=== PATIENT | male | born 1960 | race Caucasian/White ===

== ENCOUNTER 2019-06-20 22:12 | Inpatient (IN) | payer OTHER ==
[~2019-06-20] VITALS: Ht 177.8 cm; Wt 93.9 kg
[2019-06-20 22:45] LABS: BASOPHILS # (AUTO) 0.1 X10'3 (0-0.2); BASOPHILS % (AUTO) 4.3 % (0-1); EOSINOPHILS % (AUTO) 0.8 % (0-6); LYMPHOCYTES # (AUTO) 0.4 X10'3 (1.1-4.8); LYMPHOCYTES % (AUTO) 17.4 % (21-51); MEAN CORPUSCULAR HEMOGLOBIN 32.6 PG (27.0-31.0); MEAN CORPUSCULAR HGB CONC 36.8 g/dL (33.0-36.5); MEAN CORPUSCULAR VOLUME 88.6 FL (78-98); MEAN PLATELET VOLUME 7.6 FL (7.4-10.4); MONOCYTES # (AUTO) 0.7 X10'3 (0-0.9); MONOCYTES % (AUTO) 31.2 % (2-12); NEUTROPHILS % (AUTO) 46.3 % (42-75); RED BLOOD COUNT 1.64 X10'6 (4.70-6.10); RED CELL DISTRIBUTION WIDTH 15.1 % (11.5-14.5); WHITE BLOOD COUNT 2.1 X10'3 (4.5-11.0)
[2019-06-20 22:50] LABS: HEMATOCRIT 14.5 % (42.0-52.0); HEMOGLOBIN 5.3 g/dl (14.0-17.9); PLATELET COUNT 40 X10'3 (140-440)
--- NOTE | 2019-06-20 22:52 | NUR ---
DR CHOW AND FABIÁN RN AWARE OF CRITICAL VALUE HGB5.3, HCT 14.5, PLATELET 40
[2019-06-20 22:55] LABS: PARTIAL THROMBOPLASTIN TIME 22 SECONDS (22-32)
[2019-06-20 22:57] LABS: ALANINE AMINOTRANSFERASE 45 U/L (12-78); ALBUMIN 3.4 G/DL (3.4-5.0); ALBUMIN/GLOBULIN RATIO 0.9 (1.1-1.5); ALKALINE PHOSPHATASE 115 IU/L (46-116); ANION GAP 16 (8-16); ASPARTATE AMINO TRANSFERASE 25 U/L (10-37); BILIRUBIN,TOTAL 0.7 MG/DL (0.1-1.0); BLOOD UREA NITROGEN 37 MG/DL (7-18); BUN/CREATININE RATIO 5.6 (5.4-32.0); CALCIUM 8.8 MG/DL (8.5-10.1); CHLORIDE 101 MMOL/L (99-107); CREATININE 6.59 MG/DL (0.60-1.10); GLUCOSE 131 MG/DL (70-104); SODIUM 144 MMOL/L (135-145); TOTAL CARBON DIOXIDE 27.1 MMOL/L (24-32); TOTAL PROTEIN 7.4 G/DL (6.4-8.2); eGFR 9 ML/MIN
[2019-06-20 22:59] LABS: POTASSIUM 3.9 MMOL/L (3.5-5.1)
[2019-06-20 23:06] LABS: HYPOCHROMASIA 1+; PLATELET ESTIMATE DECREASED
[2019-06-20 23:07] LABS: SPHEROCYTES FEW
--- NOTE | 2019-06-20 23:33 | NUR ---
Notified by Stanley that due to the presence of "devoloping antibodies" and the need for CMV negative and irradiated blood products the availability is limited and delivery will be delayed. MD duran.
[2019-06-20] MEDS ORDERED: ondansetron/PF 4mg/2ml inj IV PRN (23:45)
[2019-06-21 02:00] VITALS: BP 118/70
[2019-06-21 03:14] LABS: BASOPHILS # (AUTO) 0.1 X10'3 (0-0.2); EOSINOPHILS % (AUTO) 0.6 % (0-6); LYMPHOCYTES # (AUTO) 0.5 X10'3 (1.1-4.8); MEAN CORPUSCULAR HEMOGLOBIN 33.3 PG (27.0-31.0); MEAN PLATELET VOLUME 7.8 FL (7.4-10.4); MONOCYTES # (AUTO) 0.7 X10'3 (0-0.9); RED BLOOD COUNT 1.57 X10'6 (4.70-6.10); WHITE BLOOD COUNT 2.3 X10'3 (4.5-11.0)
[2019-06-21 03:15] LABS: BASOPHILS % (AUTO) 4.1 % (0-1); LYMPHOCYTES % (AUTO) 20.8 % (21-51); MEAN CORPUSCULAR HGB CONC 37.4 g/dL (33.0-36.5); MEAN CORPUSCULAR VOLUME 88.9 FL (78-98); NEUTROPHILS % (AUTO) 42.5 % (42-75); RED CELL DISTRIBUTION WIDTH 15.2 % (11.5-14.5)
[2019-06-21 03:22] LABS: HEMATOCRIT 13.9 % (42.0-52.0); HEMOGLOBIN 5.2 g/dl (14.0-17.9); PLATELET COUNT 44 X10'3 (140-440)
[2019-06-21 03:32] LABS: BANDS% (MANUAL) 2 % (0-10); LYMPHOCYTES % (MANUAL) 25 % (21-51); MONOCYTES % (MANUAL) 20 % (2-12); NEUTROPHILS % (MANUAL) 46 % (42-75); TOTAL CELLS COUNTED 100
[2019-06-21 03:33] LABS: IMMATURE CELLS 3 % (0-0); METAMYLEOCYTES% (MANUAL) 3 % (0-0); NUCLEATED RED BLOOD CELLS 1 /100WBC (0-0); PROMYELOCYTES % (MANUAL) 1 % (0-0)
[2019-06-21 03:39] LABS: ALANINE AMINOTRANSFERASE 45 U/L (12-78); ALBUMIN 3.3 G/DL (3.4-5.0); ALBUMIN/GLOBULIN RATIO 0.9 (1.1-1.5); ALKALINE PHOSPHATASE 108 IU/L (46-116); ANION GAP 12 (8-16); ASPARTATE AMINO TRANSFERASE 28 U/L (10-37); BILIRUBIN,TOTAL 0.7 MG/DL (0.1-1.0); BLOOD UREA NITROGEN 43 MG/DL (7-18); CALCIUM 8.8 MG/DL (8.5-10.1); CHLORIDE 103 MMOL/L (99-107); CREATININE 7.14 MG/DL (0.60-1.10); GLUCOSE 119 MG/DL (70-104); PHOSPHORUS 5.4 MG/DL (2.3-4.5); SODIUM 142 MMOL/L (135-145); TOTAL CARBON DIOXIDE 27.1 MMOL/L (24-32); TOTAL PROTEIN 7.1 G/DL (6.4-8.2); eGFR 8 ML/MIN
[2019-06-21 03:42] LABS: POTASSIUM 4.1 MMOL/L (3.5-5.1)
[2019-06-21 04:15] LABS: BANDS% (MANUAL) 2 % (0-10); BASOPHILS % (MANUAL) 4 % (0-1); EOSINOPHILS % (MANUAL) 2 % (0-6); LYMPHOCYTES % (MANUAL) 25 % (21-51); METAMYLEOCYTES% (MANUAL) 3 % (0-0); MONOCYTES % (MANUAL) 28 % (2-12); NEUTROPHILS % (MANUAL) 36 % (42-75); PLATELET ESTIMATE DECREASED; TOTAL CELLS COUNTED 100
[2019-06-21 04:16] LABS: ROULEAUX 1+
[2019-06-21 06:00] VITALS: BP 116/68
--- NOTE | 2019-06-21 06:15 | NUR ---
Patient in room PCU 3023. I have received report from MAXIMILIANO Oneil and had the opportunity to ask questions and assume patient care.
--- NOTE | 2019-06-21 07:00 | NUR ---
Noted this patient has a Fistula dialysis access to the Left forearm. I assessed this and I could feel the thrill and I auscultated the bruit.
--- NOTE | 2019-06-21 10:44 | NUR ---
Order for STAT EKG for patient in room 9683Z. c/o chest pain. HENRYU, Wesley Sorenson
[2019-06-21 11:00] VITALS: BP 128/74
--- NOTE | 2019-06-21 11:14 | NUR ---
Patient complaining of chest pain to the left chest. Ordered EKG as per protocol. No ST changes noted. Contacted Dr. Rodriguez the Fur Storage Clerk regarding patient symptoms and EKG and asked for any further orders. Dr. Rodriguez has no new orders. I will continue to monitor patient for duration of this shift.
--- NOTE | 2019-06-21 12:03 | NUR ---
Malnutrition consult, patient met at bedside, assisted in filling out menu. Patient reports he has recently lost weight intentionally and is at 198 lbs, states comfortable at current weight. Endorses great appetite. Understands renal diet. no edema, or severe muscle weakness, appears well nourished. Reported no GI issues. No malnutrition. Addendum: 06/21/19 at [address] Amended: Links added.
--- NOTE | 2019-06-21 13:34 | NUR ---
Per Dr. Rodriguez, do NOT hang any blood on this patient until he is having his dialysis. I will pass this information on to oncoming shift and let charge nurse know what Dr. Rodriguez's orders are with regards to administering blood products.
[2019-06-21] MEDS ORDERED: LISI10TA4 PO (14:12)
[2019-06-21] MEDS ORDERED: FOLI0.8T7 PO (14:12)
[2019-06-21] MEDS ORDERED: ACYC-202 PO (14:12)
[2019-06-21] MEDS ORDERED: ONDA8TAB13 PO (14:12)
[2019-06-21] MEDS ORDERED: AMLO10TA PO (14:12)
[2019-06-21 15:00] VITALS: BP 117/73
[2019-06-21 18:00] VITALS: BP 125/79
--- NOTE | 2019-06-21 18:15 | NUR ---
Problems reprioritized. Patient report given, questions answered & plan of care reviewed with MAXIMILIANO Alatorre.
[2019-06-21] MEDS ORDERED: non-formulary drug (Ondansetron (Ondansetron Odt) 1 TAB) PO SCH (20:00)
[2019-06-21 23:00] VITALS: BP 136/83
[2019-06-22] VITALS (14 sets, daily range): BP systolic 111–146; BP diastolic 70–92
[2019-06-22 05:23] LABS: ALANINE AMINOTRANSFERASE 36 U/L (12-78); ALBUMIN 3.1 G/DL (3.4-5.0); ALBUMIN/GLOBULIN RATIO 0.8 (1.1-1.5); ALKALINE PHOSPHATASE 92 IU/L (46-116); ANION GAP 15 (8-16); ASPARTATE AMINO TRANSFERASE 20 U/L (10-37); BILIRUBIN,TOTAL 0.8 MG/DL (0.1-1.0); BLOOD UREA NITROGEN 68 MG/DL (7-18); BUN/CREATININE RATIO 6.9 (5.4-32.0); CALCIUM 7.9 MG/DL (8.5-10.1); CHLORIDE 99 MMOL/L (99-107); CREATININE 9.84 MG/DL (0.60-1.10); GLUCOSE 88 MG/DL (70-104); MAGNESIUM 1.9 MG/DL (1.5-2.4); PHOSPHORUS 5.8 MG/DL (2.3-4.5); POTASSIUM 5.1 MMOL/L (3.5-5.1); SODIUM 138 MMOL/L (135-145); TOTAL CARBON DIOXIDE 24.2 MMOL/L (24-32); TOTAL PROTEIN 6.8 G/DL (6.4-8.2); eGFR 6 ML/MIN
--- NOTE | 2019-06-22 06:30 | NUR ---
Patient in room PCU 3023. I have received report from MAXIMILIANO Alatorre and had the opportunity to ask questions and assume patient care. Patient currently resting in bed, bed locked and low, call light in reach, no acute distress, will continue to monitor.
--- NOTE | 2019-06-22 06:38 | NUR ---
Problems reprioritized. Patient report given, questions answered & plan of care reviewed with Destiny VIERA.
[2019-06-22 06:56] LABS: BASOPHILS % (AUTO) 0.8 % (0-1); EOSINOPHILS % (AUTO) 0.7 % (0-6); LYMPHOCYTES # (AUTO) 0.6 X10'3 (1.1-4.8); LYMPHOCYTES % (AUTO) 24.7 % (21-51); MEAN CORPUSCULAR HEMOGLOBIN 31.8 PG (27.0-31.0); MEAN CORPUSCULAR HGB CONC 36.3 g/dL (33.0-36.5); MEAN CORPUSCULAR VOLUME 87.5 FL (78-98); MEAN PLATELET VOLUME 7.3 FL (7.4-10.4); MONOCYTES # (AUTO) 0.6 X10'3 (0-0.9); MONOCYTES % (AUTO) 27.4 % (2-12); NEUTROPHILS # (AUTO) 1.1 X10'3 (1.8-7.7); NEUTROPHILS % (AUTO) 46.4 % (42-75); RED BLOOD COUNT 1.33 X10'6 (4.70-6.10); RED CELL DISTRIBUTION WIDTH 14.7 % (11.5-14.5); WHITE BLOOD COUNT 2.3 X10'3 (4.5-11.0)
[2019-06-22 07:00] LABS: HEMATOCRIT 11.7 % (42.0-52.0); HEMOGLOBIN 4.2 g/dl (14.0-17.9)
[2019-06-22 07:01] LABS: PLATELET COUNT 39 X10'3 (140-440)
[2019-06-22] MEDS ORDERED: heparin 1,000 units/ml 10ml inj HE ONE ×2 (08:00)
[2019-06-22] MEDS ORDERED: epoetin 20,000 units/ml inj IV ONE (08:00)
[2019-06-22] MEDS ORDERED: heparin 1,000unit/ml 10ml vial 10 ML IV ONE (08:00)
[2019-06-22] MEDS ORDERED: normal saline 1000ml 250 ML IV PRN (08:00)
[2019-06-22] MEDS: folic acid/vitamin B complex w/vitamin C 0.8mg tablet PO SCH (08:10)
[2019-06-22 09:14] LABS: NUCLEATED RED BLOOD CELLS 1 /100WBC (0-0); PLATELET ESTIMATE DECREASED; ROULEAUX 1+; TOTAL CELLS COUNTED 100
--- NOTE | 2019-06-22 13:00 | NUR ---
Per Idalia Howard NP, no H&H drawn post transfusion or in between units. Will check in the morning with AM labs.
[2019-06-22] MEDS: lisinopril 10 MG tablet PO SCH (14:23)
[2019-06-22] MEDS: amLODIPine 5mg tablet PO SCH (14:23)
[2019-06-22] MEDS ORDERED: acyclovir 200 MG capsule PO SCH (15:09)
--- NOTE | 2019-06-22 18:05 | NUR ---
Problems reprioritized. Patient report given, questions answered & plan of care reviewed with MAXIMILIANO Alatorre. Patient stable at shift change
--- NOTE | 2019-06-22 18:14 | NUR ---
Patient in room PCU 3023. I have received report from Martine Kingsley and had the opportunity to ask questions and assume patient care.
[2019-06-23 02:00] VITALS: BP 122/78
[2019-06-23 06:00] VITALS: BP 118/68
--- NOTE | 2019-06-23 06:26 | NUR ---
Problems reprioritized. Patient report given, questions answered & plan of care reviewed with Damaris Richardson.
[2019-06-23 06:45] LABS: BASOPHILS # (AUTO) 0.1 X10'3 (0-0.2); BASOPHILS % (AUTO) 5.4 % (0-1); EOSINOPHILS % (AUTO) 0.8 % (0-6); LYMPHOCYTES # (AUTO) 0.5 X10'3 (1.1-4.8); LYMPHOCYTES % (AUTO) 18.1 % (21-51); MEAN PLATELET VOLUME 7.6 FL (7.4-10.4); MONOCYTES # (AUTO) 0.8 X10'3 (0-0.9); NEUTROPHILS # (AUTO) 1.1 X10'3 (1.8-7.7); NEUTROPHILS % (AUTO) 44.7 % (42-75); RED BLOOD COUNT 1.87 X10'6 (4.70-6.10); WHITE BLOOD COUNT 2.5 X10'3 (4.5-11.0)
--- NOTE | 2019-06-23 07:02 | NUR ---
Patient in room PCU 3023C. I have received report from Celi VIERA and had the opportunity to ask questions and assume patient care.
[2019-06-23 07:09] LABS: ALANINE AMINOTRANSFERASE 34 U/L (12-78); ALBUMIN 3.3 G/DL (3.4-5.0); ALBUMIN/GLOBULIN RATIO 0.9 (1.1-1.5); ALKALINE PHOSPHATASE 94 IU/L (46-116); ANION GAP 10 (8-16); ASPARTATE AMINO TRANSFERASE 24 U/L (10-37); BILIRUBIN,TOTAL 0.8 MG/DL (0.1-1.0); BLOOD UREA NITROGEN 41 MG/DL (7-18); BUN/CREATININE RATIO 5.9 (5.4-32.0); CALCIUM 8.5 MG/DL (8.5-10.1); CHLORIDE 102 MMOL/L (99-107); CREATININE 6.97 MG/DL (0.60-1.10); GLUCOSE 91 MG/DL (70-104); PHOSPHORUS 5.3 MG/DL (2.3-4.5); POTASSIUM 4.9 MMOL/L (3.5-5.1); SODIUM 140 MMOL/L (135-145); TOTAL CARBON DIOXIDE 28.4 MMOL/L (24-32); TOTAL PROTEIN 7.1 G/DL (6.4-8.2); eGFR 8 ML/MIN
[2019-06-23 07:23] LABS: MEAN CORPUSCULAR HEMOGLOBIN 30.4 PG (27.0-31.0); MEAN CORPUSCULAR HGB CONC 35.3 g/dL (33.0-36.5); MEAN CORPUSCULAR VOLUME 86.1 FL (78-98)
[2019-06-23 07:26] LABS: HEMATOCRIT 15.7 % (42.0-52.0); HEMOGLOBIN 5.5 g/dl (14.0-17.9); PLATELET COUNT 56 X10'3 (140-440)
[2019-06-23 07:28] LABS: RED CELL DISTRIBUTION WIDTH 14.9 % (11.5-14.5)
--- NOTE | 2019-06-23 07:36 | NUR ---
Received critical Hgb and Hct of 5.5 abd 15.7. (up from 4.2 and 11.7 on 06/22). Platelets increased to 56 (from 39 on 06/22). Called CARLOS Bell to notify. No orders to transfuse at this time; she will speak to Dr Masterson and they will decide when to transfuse/dialyze patient. Patient asymptomatic at this time.
[2019-06-23 08:12] LABS: TOTAL CELLS COUNTED 100
[2019-06-23 08:13] LABS: PLATELET ESTIMATE DECREASED; ROULEAUX 1+
[2019-06-23] MEDS: folic acid/vitamin B complex w/vitamin C 0.8mg tablet PO SCH (08:58)
[2019-06-23] MEDS: lisinopril 10 MG tablet PO SCH (08:58)
[2019-06-23] MEDS: amLODIPine 5mg tablet PO SCH (08:58)
[2019-06-23 11:00] VITALS: BP 139/76
[2019-06-23 15:00] VITALS: BP 140/84
--- NOTE | 2019-06-23 15:30 | NUR ---
Patient in room PCU 3023. I have received report from MAXIMILIANO Ocampo and had the opportunity to ask questions and assume patient care.
--- NOTE | 2019-06-23 18:30 | NUR ---
Problems reprioritized. Patient report given, questions answered & plan of care reviewed with Percy RN.
--- NOTE | 2019-06-23 18:30 | NUR ---
Patient in room PCU 3023. I have received report from Lulú Hackett RN and had the opportunity to ask questions and assume patient care.
[2019-06-23 19:35] VITALS: BP 126/75
[2019-06-23 23:00] VITALS: BP 118/79
[2019-06-24 03:00] VITALS: BP 140/89
[2019-06-24 06:00] VITALS: BP 125/79
[2019-06-24 06:08] LABS: EOSINOPHILS % (AUTO) 0.9 % (0-6); LYMPHOCYTES # (AUTO) 0.5 X10'3 (1.1-4.8); MONOCYTES # (AUTO) 0.9 X10'3 (0-0.9); PLATELET COUNT 54 X10'3 (140-440); RED BLOOD COUNT 1.69 X10'6 (4.70-6.10)
[2019-06-24 06:10] LABS: BASOPHILS # (AUTO) 0.1 X10'3 (0-0.2); BASOPHILS % (AUTO) 3.9 % (0-1); LYMPHOCYTES % (AUTO) 17.4 % (21-51); MEAN CORPUSCULAR HEMOGLOBIN 31.6 PG (27.0-31.0); MEAN CORPUSCULAR HGB CONC 36.3 g/dL (33.0-36.5); MEAN CORPUSCULAR VOLUME 87.1 FL (78-98); MEAN PLATELET VOLUME 7.6 FL (7.4-10.4); MONOCYTES % (AUTO) 31.6 % (2-12); NEUTROPHILS # (AUTO) 1.4 X10'3 (1.8-7.7); NEUTROPHILS % (AUTO) 46.2 % (42-75); RED CELL DISTRIBUTION WIDTH 14.5 % (11.5-14.5)
[2019-06-24 06:11] LABS: ALANINE AMINOTRANSFERASE 34 U/L (12-78); ALBUMIN 3.3 G/DL (3.4-5.0); ALBUMIN/GLOBULIN RATIO 0.8 (1.1-1.5); ALKALINE PHOSPHATASE 95 IU/L (46-116); ANION GAP 12 (8-16); ASPARTATE AMINO TRANSFERASE 24 U/L (10-37); BILIRUBIN,TOTAL 0.6 MG/DL (0.1-1.0); BLOOD UREA NITROGEN 64 MG/DL (7-18); BUN/CREATININE RATIO 6.6 (5.4-32.0); CALCIUM 7.7 MG/DL (8.5-10.1); CHLORIDE 102 MMOL/L (99-107); CREATININE 9.68 MG/DL (0.60-1.10); GLUCOSE 97 MG/DL (70-104); MAGNESIUM 1.9 MG/DL (1.5-2.4); POTASSIUM 4.9 MMOL/L (3.5-5.1); SODIUM 140 MMOL/L (135-145); TOTAL CARBON DIOXIDE 26.1 MMOL/L (24-32); TOTAL PROTEIN 7.2 G/DL (6.4-8.2); eGFR 6 ML/MIN
[2019-06-24 06:14] LABS: HEMATOCRIT 14.7 % (42.0-52.0); HEMOGLOBIN 5.3 g/dl (14.0-17.9)
--- NOTE | 2019-06-24 06:23 | NUR ---
Patient in room PCU 3024H. I have received report from Percy RN and had the opportunity to ask questions and assume patient care.
--- NOTE | 2019-06-24 06:23 | NUR ---
Received critical Hgb and Hct 5.3 and 14.7. Platelets 54. Pt asymptomatic. Called Tom Wolff NP, and there is no change in orders.
--- NOTE | 2019-06-24 07:19 | NUR ---
Problems reprioritized. Patient report given, questions answered & plan of care reviewed with Damaris Olson RN. Addendum: 06/24/19 at 0721 by Winston Bey RN time should be 0630
[2019-06-24] MEDS: folic acid/vitamin B complex w/vitamin C 0.8mg tablet PO SCH (07:49)
[2019-06-24] MEDS: amLODIPine 5mg tablet PO SCH (07:49)
[2019-06-24] MEDS: acyclovir 200 MG capsule PO SCH (07:49)
[2019-06-24] MEDS: lisinopril 10 MG tablet PO SCH (07:50)
[2019-06-24 09:16] LABS: TOTAL CELLS COUNTED 100
[2019-06-24 09:17] LABS: PLATELET ESTIMATE DECREASED
[2019-06-24 11:00] VITALS: BP 116/76
[2019-06-24 14:08] LABS: OCCULT BLOOD STOOL NEGATIVE (Neg)
[2019-06-24 15:00] VITALS: BP 118/81
--- NOTE | 2019-06-24 15:50 | NUR ---
Problems reprioritized. Patient report given, questions answered & plan of care reviewed with Valeria VIERA and Lorna VIERA.
--- NOTE | 2019-06-24 18:30 | NUR ---
Patient in room PCU 3023. I have received report from Valeria VIERA and had the opportunity to ask questions and assume patient care.
--- NOTE | 2019-06-24 18:33 | NUR ---
Orientee documentation: I have reviewed and agree with interventions, assessments performed and documented by Lorna VIERA. Orientee Medication Administration: For this medication-pass time frame, medication were reviewed, dispensed, administered and documented per hospital policy by Lorna VIERA .
--- NOTE | 2019-06-24 18:44 | NUR ---
Problems reprioritized. Patient report given, questions answered & plan of care reviewed with Reshma VIERA. Patient stable at transfer of care.
[2019-06-24 19:00] VITALS: BP 139/88
--- NOTE | 2019-06-24 19:15 | NUR ---
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 Called report to Squeak Rattle And Leak Repairer Tom Wolff NP and relayed information regarding patients' critical antibody result for his ongoing plan of care.
[2019-06-24] MEDS: acetaminophen 325mg tablet PO PRN (21:11)
[2019-06-24 23:00] VITALS: BP 122/77
[2019-06-24] MEDS: HYDROcodone/acetaminophen 10/325mg tab PO PRN (23:43)
[2019-06-25] VITALS (8 sets, daily range): BP systolic 98–137; BP diastolic 58–83
[2019-06-25 05:10] LABS: LYMPHOCYTES # (AUTO) 0.7 X10'3 (1.1-4.8); PLATELET COUNT 56 X10'3 (140-440); RED BLOOD COUNT 1.61 X10'6 (4.70-6.10)
[2019-06-25 05:13] LABS: BASOPHILS % (AUTO) 0.6 % (0-1); EOSINOPHILS % (AUTO) 1.1 % (0-6); LYMPHOCYTES % (AUTO) 17.9 % (21-51); MEAN CORPUSCULAR HEMOGLOBIN 31.4 PG (27.0-31.0); MEAN CORPUSCULAR HGB CONC 36.2 g/dL (33.0-36.5); MEAN CORPUSCULAR VOLUME 86.7 FL (78-98); MEAN PLATELET VOLUME 7.5 FL (7.4-10.4); NEUTROPHILS # (AUTO) 2.1 X10'3 (1.8-7.7); NEUTROPHILS % (AUTO) 55.4 % (42-75); RED CELL DISTRIBUTION WIDTH 14.8 % (11.5-14.5); WHITE BLOOD COUNT 3.9 X10'3 (4.5-11.0)
[2019-06-25 05:18] LABS: HEMOGLOBIN 5.1 g/dl (14.0-17.9)
[2019-06-25 05:38] LABS: ALANINE AMINOTRANSFERASE 35 U/L (12-78); ALBUMIN 3.2 G/DL (3.4-5.0); ALBUMIN/GLOBULIN RATIO 0.8 (1.1-1.5); ALKALINE PHOSPHATASE 91 IU/L (46-116); ANION GAP 15 (8-16); ASPARTATE AMINO TRANSFERASE 27 U/L (10-37); BILIRUBIN,TOTAL 0.6 MG/DL (0.1-1.0); BLOOD UREA NITROGEN 79 MG/DL (7-18); BUN/CREATININE RATIO 6.5 (5.4-32.0); CALCIUM 7.9 MG/DL (8.5-10.1); CHLORIDE 99 MMOL/L (99-107); CREATININE 12.07 MG/DL (0.60-1.10); GLUCOSE 86 MG/DL (70-104); PHOSPHORUS 7.1 MG/DL (2.3-4.5); POTASSIUM 5.1 MMOL/L (3.5-5.1); SODIUM 138 MMOL/L (135-145); TOTAL CARBON DIOXIDE 24.3 MMOL/L (24-32); TOTAL PROTEIN 7.4 G/DL (6.4-8.2); eGFR 4 ML/MIN
[2019-06-25 06:26] LABS: TOTAL CELLS COUNTED 100
[2019-06-25 06:27] LABS: PLATELET ESTIMATE DECREASED
--- NOTE | 2019-06-25 06:45 | NUR ---
Problems reprioritized. Patient report given, questions answered & plan of care reviewed with AGUILA VIERA.
[2019-06-25] MEDS ORDERED: heparin 1,000 units/ml 10ml inj HE ONE ×2 (08:00)
[2019-06-25] MEDS ORDERED: normal saline 1000ml 250 ML IV PRN (08:00)
[2019-06-25] MEDS ORDERED: epoetin 20,000 units/ml inj IV ONE (08:00)
[2019-06-25] MEDS ORDERED: heparin 1,000unit/ml 10ml vial 10 ML IV ONE (08:00)
[2019-06-25] MEDS: acyclovir 200 MG capsule PO SCH (09:31)
[2019-06-25] MEDS: amLODIPine 5mg tablet PO SCH (09:32)
[2019-06-25] MEDS: folic acid/vitamin B complex w/vitamin C 0.8mg tablet PO SCH (09:32)
[2019-06-25] MEDS: lisinopril 10 MG tablet PO SCH (09:32)
--- NOTE | 2019-06-25 09:52 | NUR ---
Initial: Pt admit with chronic anemia with hx ESRD on HD. Pt currently on renal diet documented with 75-100% meeting nutrient needs with adequate protein intake to meet the demands of HD. Noted that phos has increased since admit, d/w MD recommendation for a phos binder with meals. LBM 06/24. No edema or wounds. No nutrition diagnosis at this time. Will continue to follow. Recommendations: 1) Continue renal diet 2) Phos binder with meals per MD approval 3) Wt per rx Addendum: 06/25/19 at [address] Amended: Links added.
--- NOTE | 2019-06-25 12:36 | NUR ---
I agree with will Dixon RN assessment.
[2019-06-25] MEDS: HYDROcodone/acetaminophen 10/325mg tab PO PRN (13:19)
[2019-06-25] MEDS: sevelamer carbonate 800mg tablet PO SCH ×2 (13:20→20:09)
[2019-06-25] MEDS: folic acid 1mg tablet PO SCH (13:20)
--- NOTE | 2019-06-25 18:11 | NUR ---
Orientee documentation: I have reviewed and agree with interventions, assessments performed and documented by Destiny VIERA. Orientee Medication Administration: For this medication-pass time frame, medication were reviewed, dispensed, administered and documented per hospital policy by Destiny VIERA.
--- NOTE | 2019-06-25 18:15 | NUR ---
Patient in room PCU 3023. I have received report from Destiny Tavarez RN and had the opportunity to ask questions and assume patient care. Bedside report completed. robotic technician present, no distress noted.
--- NOTE | 2019-06-25 18:29 | NUR ---
Problems reprioritized. Patient report given, questions answered & plan of care reviewed with Pete VIERA.
--- NOTE | 2019-06-25 19:30 | NUR ---
pt has chemo port access unknown, saline/ heparin lock unable to determine. no sign of infection. dressing clean, dry , intact. endorsed assessment to charge Radha VIERA / policy r/t compliance.
[2019-06-26] VITALS (27 sets, daily range): BP systolic 93–155; BP diastolic 53–86
--- NOTE | 2019-06-26 06:12 | NUR ---
Problems reprioritized. Patient report given to Yesica RN, questions answered & plan of care reviewed with . Bedside reported completed. pt a/o x4, bed alarm on.
[2019-06-26] MEDS: folic acid 1mg tablet PO SCH (08:24)
[2019-06-26] MEDS: acyclovir 200 MG capsule PO SCH (08:24)
[2019-06-26] MEDS: folic acid/vitamin B complex w/vitamin C 0.8mg tablet PO SCH (08:24)
[2019-06-26] MEDS: sevelamer carbonate 800mg tablet PO SCH ×3 (08:24→17:50)
[2019-06-26] MEDS ORDERED: calcium chloride inj. 2,000 MG in normal saline 250ml IV soln 250 ML IV ONE (09:00)
[2019-06-26] MEDS ORDERED: citrate dextrose 1000ml IV sol 1,000 ML HE ONE (09:00)
[2019-06-26] MEDS: lisinopril 10 MG tablet PO SCH (09:43)
[2019-06-26] MEDS: amLODIPine 5mg tablet PO SCH (09:43)
[2019-06-26 11:21] LABS: BASOPHILS # (AUTO) 0.1 X10'3 (0-0.2); EOSINOPHILS # (AUTO) 0.1 X10'3 (0-0.9); MEAN CORPUSCULAR VOLUME 87.2 FL (78-98); NEUTROPHILS # (AUTO) 2.2 X10'3 (1.8-7.7); PLATELET COUNT 62 X10'3 (140-440); WHITE BLOOD COUNT 4.4 X10'3 (4.5-11.0)
[2019-06-26 11:22] LABS: BASOPHILS % (AUTO) 1.4 % (0-1); EOSINOPHILS % (AUTO) 2.3 % (0-6); LYMPHOCYTES # (AUTO) 0.7 X10'3 (1.1-4.8); LYMPHOCYTES % (AUTO) 15.7 % (21-51); MEAN CORPUSCULAR HEMOGLOBIN 31.7 PG (27.0-31.0); MEAN CORPUSCULAR HGB CONC 36.3 g/dL (33.0-36.5); MEAN PLATELET VOLUME 7.9 FL (7.4-10.4); MONOCYTES # (AUTO) 1.3 X10'3 (0-0.9); MONOCYTES % (AUTO) 30.3 % (2-12); NEUTROPHILS % (AUTO) 50.3 % (42-75); RED BLOOD COUNT 1.79 X10'6 (4.70-6.10); RED CELL DISTRIBUTION WIDTH 14.7 % (11.5-14.5)
[2019-06-26 11:25] LABS: HEMATOCRIT 15.6 % (42.0-52.0); HEMOGLOBIN 5.7 g/dl (14.0-17.9)
[2019-06-26] MEDS ORDERED: heparin sodium, porcine/PF 100unit/ml 5ML syringe IV ONE (11:45)
[2019-06-26] MEDS ORDERED: heparin sodium, porcine/PF 100unit/ml 5ML syringe IV SCH (11:45)
[2019-06-26 12:28] LABS: NUCLEATED RED BLOOD CELLS 2 /100WBC (0-0); TOTAL CELLS COUNTED 100
[2019-06-26 12:29] LABS: ANISOCYTOSIS 1+; PLATELET ESTIMATE DECREASED
[2019-06-26] MEDS: acetaminophen 325mg tablet PO PRN (16:42)
--- NOTE | 2019-06-26 18:39 | NUR ---
Problems reprioritized. Patient report given, questions answered & plan of care reviewed with Tana VIERA.
[2019-06-27] VITALS (8 sets, daily range): BP systolic 94–153; BP diastolic 54–87
--- NOTE | 2019-06-27 06:00 | NUR ---
Patient in room PCU 3023. I have received report from Tana VIERA and had the opportunity to ask questions and assume patient care.
--- NOTE | 2019-06-27 06:33 | NUR ---
Patient in room PCU 3023. I have received report from Tana VIERA and had the opportunity to ask questions and assume patient care. All patients needs met at this time.
[2019-06-27] MEDS: folic acid/vitamin B complex w/vitamin C 0.8mg tablet PO SCH (07:29)
[2019-06-27] MEDS: folic acid 1mg tablet PO SCH (07:29)
[2019-06-27] MEDS: acyclovir 200 MG capsule PO SCH (07:29)
[2019-06-27] MEDS: lisinopril 10 MG tablet PO SCH (07:30)
[2019-06-27] MEDS: sevelamer carbonate 800mg tablet PO SCH ×3 (07:30→18:58)
[2019-06-27] MEDS: amLODIPine 5mg tablet PO SCH (07:30)
[2019-06-27] MEDS ORDERED: epoetin 20,000 units/ml inj IV ONE (08:50)
[2019-06-27] MEDS ORDERED: heparin 1,000 units/ml 10ml inj HE ONE ×2 (08:55)
[2019-06-27 09:52] LABS: HEMOGLOBIN 8.2 g/dl (14.0-17.9); MEAN CORPUSCULAR HEMOGLOBIN 31.4 PG (27.0-31.0); MEAN CORPUSCULAR HGB CONC 35.4 g/dL (33.0-36.5); MEAN CORPUSCULAR VOLUME 88.8 FL (78-98); MEAN PLATELET VOLUME 7.4 FL (7.4-10.4); PLATELET COUNT 55 X10'3 (140-440); RED CELL DISTRIBUTION WIDTH 14.3 % (11.5-14.5); WHITE BLOOD COUNT 5.2 X10'3 (4.5-11.0)
[2019-06-27 10:10] LABS: ALANINE AMINOTRANSFERASE 37 U/L (12-78); ALBUMIN 3.5 G/DL (3.4-5.0); ALBUMIN/GLOBULIN RATIO 0.8 (1.1-1.5); ALKALINE PHOSPHATASE 92 IU/L (46-116); ANION GAP 12 (8-16); ASPARTATE AMINO TRANSFERASE 23 U/L (10-37); BILIRUBIN,TOTAL 0.6 MG/DL (0.1-1.0); BLOOD UREA NITROGEN 62 MG/DL (7-18); CALCIUM 9.6 MG/DL (8.5-10.1); CHLORIDE 101 MMOL/L (99-107); CREATININE 10.27 MG/DL (0.60-1.10); GLUCOSE 100 MG/DL (70-104); POTASSIUM 5.3 MMOL/L (3.5-5.1); SODIUM 141 MMOL/L (135-145); TOTAL CARBON DIOXIDE 28.3 MMOL/L (24-32); TOTAL PROTEIN 7.9 G/DL (6.4-8.2); eGFR 5 ML/MIN
--- NOTE | 2019-06-27 10:24 | NUR ---
Per Angelica BOWLING, follow up with [facility] regarding bone marrow biopsy. Contacted @ [phone] and spoke with front office secretary Arti who stated that pt. is yet to be added on schedule and pen rider Aparna is out. Left Arti with unit call back number [phone]. Arti states she will call once Aparna is back in.
--- NOTE | 2019-06-27 12:37 | NUR ---
Informed Dr. Aguirre that report from bone marrow biopsy will be faxed to him and Dr. Rodriguez possibly by tomorrow per Aparna. Per Dr. Aguirre, he would like it to be faxed to Telemetry unit instead. Called [facility] and left unit fax number with manager business process Francisco Javier.
[2019-06-27 15:52] LABS: RED BLOOD COUNT 2.91 X10'6 (4.70-6.10); RETICULOCYTE % (AUTO) 0.6 % (0.5-1.5)
--- NOTE | 2019-06-27 18:00 | NUR ---
Patient in room PCU 3023. I have received report from Kwaku VIERA and had the opportunity to ask questions and assume patient care.
--- NOTE | 2019-06-27 18:30 | NUR ---
Problems reprioritized. Patient report given, questions answered & plan of care reviewed with Lisseth VIERA.
[2019-06-28] VITALS (15 sets, daily range): BP systolic 97–146; BP diastolic 65–87
--- NOTE | 2019-06-28 05:30 | NUR ---
END NOC NOTE Patient slept well tonight. Tender around biopsy incision but no medication needed to help with the pain was needed. Will continue to monitor.
--- NOTE | 2019-06-28 06:34 | NUR ---
Patient in room PCU 3023. I have received report from Mona VIERA and Crystal VIERA and had the opportunity to ask questions and assume patient care.
--- NOTE | 2019-06-28 06:40 | NUR ---
Problems reprioritized. Patient report given, questions answered & plan of care reviewed with Yesica VIERA.
[2019-06-28] MEDS: lisinopril 10 MG tablet PO SCH (07:31)
[2019-06-28] MEDS: sevelamer carbonate 800mg tablet PO SCH ×3 (07:31→17:49)
[2019-06-28] MEDS: amLODIPine 5mg tablet PO SCH (07:31)
[2019-06-28] MEDS: acyclovir 200 MG capsule PO SCH (07:32)
[2019-06-28] MEDS: folic acid/vitamin B complex w/vitamin C 0.8mg tablet PO SCH (07:32)
[2019-06-28] MEDS: folic acid 1mg tablet PO SCH (07:32)
--- NOTE | 2019-06-28 08:00 | NUR ---
Received orders for daily labs CBC CMP Mg and Phos for pt
[2019-06-28 08:39] LABS: EOSINOPHILS # (AUTO) 0.1 X10'3 (0-0.9); EOSINOPHILS % (AUTO) 1.6 % (0-6); LYMPHOCYTES # (AUTO) 0.7 X10'3 (1.1-4.8); MEAN CORPUSCULAR HEMOGLOBIN 31.1 PG (27.0-31.0); WHITE BLOOD COUNT 4.3 X10'3 (4.5-11.0)
[2019-06-28 08:42] LABS: BASOPHILS % (AUTO) 0.4 % (0-1); HEMOGLOBIN 8.1 g/dl (14.0-17.9); LYMPHOCYTES % (AUTO) 15.8 % (21-51); MEAN CORPUSCULAR HGB CONC 35.4 g/dL (33.0-36.5); MEAN PLATELET VOLUME 7.5 FL (7.4-10.4); MONOCYTES % (AUTO) 22.2 % (2-12); NEUTROPHILS # (AUTO) 2.6 X10'3 (1.8-7.7); PLATELET COUNT 55 X10'3 (140-440); RED BLOOD COUNT 2.61 X10'6 (4.70-6.10); RED CELL DISTRIBUTION WIDTH 14.3 % (11.5-14.5)
[2019-06-28 09:01] LABS: ALANINE AMINOTRANSFERASE 44 U/L (12-78); ALBUMIN 3.4 G/DL (3.4-5.0); ALBUMIN/GLOBULIN RATIO 0.8 (1.1-1.5); ALKALINE PHOSPHATASE 103 IU/L (46-116); ANION GAP 10 (8-16); ASPARTATE AMINO TRANSFERASE 30 U/L (10-37); BILIRUBIN,TOTAL 0.6 MG/DL (0.1-1.0); BLOOD UREA NITROGEN 39 MG/DL (7-18); CALCIUM 8.4 MG/DL (8.5-10.1); CHLORIDE 99 MMOL/L (99-107); CREATININE 7.77 MG/DL (0.60-1.10); GLUCOSE 162 MG/DL (70-104); MAGNESIUM 1.8 MG/DL (1.5-2.4); PHOSPHORUS 5.3 MG/DL (2.3-4.5); POTASSIUM 4.8 MMOL/L (3.5-5.1); SODIUM 137 MMOL/L (135-145); TOTAL CARBON DIOXIDE 27.9 MMOL/L (24-32); TOTAL PROTEIN 7.8 G/DL (6.4-8.2); eGFR 7 ML/MIN
[2019-06-28] MEDS ORDERED: calcium chloride inj. 2,000 MG in normal saline 250ml IV soln 250 ML IV ONE (09:20)
[2019-06-28] MEDS ORDERED: citrate dextrose 1000ml IV sol 1,000 ML HE ONE (09:20)
[2019-06-28 09:26] LABS: ANISOCYTOSIS 1+; PLATELET ESTIMATE DECREASED; TOTAL CELLS COUNTED 100
--- NOTE | 2019-06-28 13:26 | NUR ---
called [facility] in regards to pending Bone marrow biopsy results and results have not been completed.
--- NOTE | 2019-06-28 17:53 | NUR ---
Received Bone marrow biopsy and reported results to Dr. Aguirre, no new orders at this time.
--- NOTE | 2019-06-28 18:00 | NUR ---
Patient in room PCU 3023. I have received report from Yesica VIERA and had the opportunity to ask questions and assume patient care.
[2019-06-28] MEDS: acetaminophen 325mg tablet PO PRN (21:16)
[2019-06-29] VITALS (7 sets, daily range): BP systolic 103–138; BP diastolic 55–81
--- NOTE | 2019-06-29 05:00 | NUR ---
END NOC NOTE Patient slept well tonight, asked for Tylenol for pain once tonight. Awaiting MD to talk about biopsy results. Will continue to monitor.
[2019-06-29 06:00] LABS: BASOPHILS # (AUTO) 0.1 X10'3 (0-0.2); EOSINOPHILS # (AUTO) 0.1 X10'3 (0-0.9); HEMOGLOBIN 7.4 g/dl (14.0-17.9); WHITE BLOOD COUNT 5.2 X10'3 (4.5-11.0)
[2019-06-29 06:08] LABS: BASOPHILS % (AUTO) 1.5 % (0-1); EOSINOPHILS % (AUTO) 1.9 % (0-6); LYMPHOCYTES # (AUTO) 0.9 X10'3 (1.1-4.8); LYMPHOCYTES % (AUTO) 16.9 % (21-51); MEAN CORPUSCULAR HEMOGLOBIN 31.7 PG (27.0-31.0); MEAN CORPUSCULAR HGB CONC 35.8 g/dL (33.0-36.5); MEAN CORPUSCULAR VOLUME 88.4 FL (78-98); MEAN PLATELET VOLUME 7.5 FL (7.4-10.4); MONOCYTES # (AUTO) 1.8 X10'3 (0-0.9); MONOCYTES % (AUTO) 35.1 % (2-12); NEUTROPHILS # (AUTO) 2.3 X10'3 (1.8-7.7); NEUTROPHILS % (AUTO) 44.6 % (42-75); RED BLOOD COUNT 2.34 X10'6 (4.70-6.10); RED CELL DISTRIBUTION WIDTH 14.1 % (11.5-14.5)
[2019-06-29 06:11] LABS: HEMATOCRIT 20.7 % (42.0-52.0)
--- NOTE | 2019-06-29 06:11 | NUR ---
Patient in room PCU 3023. I have received report from Latisha VIERA and had the opportunity to ask questions and assume patient care.
[2019-06-29 06:12] LABS: PLATELET COUNT 45 X10'3 (140-440)
--- NOTE | 2019-06-29 06:19 | NUR ---
Problems reprioritized. Patient report given, questions answered & plan of care reviewed with Yesica VIERA .
[2019-06-29 06:21] LABS: ALANINE AMINOTRANSFERASE 40 U/L (12-78); ALBUMIN 3.4 G/DL (3.4-5.0); ALBUMIN/GLOBULIN RATIO 0.8 (1.1-1.5); ALKALINE PHOSPHATASE 87 IU/L (46-116); ANION GAP 10 (8-16); ASPARTATE AMINO TRANSFERASE 29 U/L (10-37); BILIRUBIN,TOTAL 0.7 MG/DL (0.1-1.0); BLOOD UREA NITROGEN 54 MG/DL (7-18); BUN/CREATININE RATIO 5.5 (5.4-32.0); CALCIUM 9.2 MG/DL (8.5-10.1); CHLORIDE 98 MMOL/L (99-107); CREATININE 9.85 MG/DL (0.60-1.10); GLUCOSE 82 MG/DL (70-104); MAGNESIUM 1.9 MG/DL (1.5-2.4); PHOSPHORUS 5.6 MG/DL (2.3-4.5); POTASSIUM 5.3 MMOL/L (3.5-5.1); SODIUM 137 MMOL/L (135-145); TOTAL CARBON DIOXIDE 28.6 MMOL/L (24-32); TOTAL PROTEIN 7.5 G/DL (6.4-8.2); eGFR 5 ML/MIN
--- NOTE | 2019-06-29 06:26 | NUR ---
Reported critical labs of Hct 20.7 and Plt 45 to September, no new orders at this time.
[2019-06-29] MEDS: amLODIPine 5mg tablet PO SCH (07:27)
[2019-06-29] MEDS: folic acid 1mg tablet PO SCH (07:27)
[2019-06-29] MEDS: lisinopril 10 MG tablet PO SCH (07:27)
[2019-06-29] MEDS: folic acid/vitamin B complex w/vitamin C 0.8mg tablet PO SCH (07:27)
[2019-06-29] MEDS: acyclovir 200 MG capsule PO SCH (07:28)
[2019-06-29] MEDS: sevelamer carbonate 800mg tablet PO SCH ×3 (07:28→17:28)
[2019-06-29 07:38] LABS: ANISOCYTOSIS 1+; PLATELET ESTIMATE DECREASED; TOTAL CELLS COUNTED 100
[2019-06-29] MEDS ORDERED: epoetin 20,000 units/ml inj IV ONE (08:00)
[2019-06-29] MEDS ORDERED: heparin 1,000 units/ml 10ml inj HE ONE ×2 (08:00)
[2019-06-29] MEDS ORDERED: albumin (human) 25% 100ml IV 100 ML IV PRN (08:00)
--- NOTE | 2019-06-29 18:00 | NUR ---
Patient in room PCU 3023. I have received report from Yesica VIERA and had the opportunity to ask questions and assume patient care.
--- NOTE | 2019-06-29 18:13 | NUR ---
Problems reprioritized. Patient report given, questions answered & plan of care reviewed with Latisha VIERA.
[2019-06-30] VITALS (7 sets, daily range): BP systolic 92–126; BP diastolic 53–82
--- NOTE | 2019-06-30 04:21 | NUR ---
NOC Note Patient has been sleeping well tonight. Patient is awaiting for biopsy results. Will continue to monitor.
[2019-06-30 05:19] LABS: EOSINOPHILS # (AUTO) 0.1 X10'3 (0-0.9); MEAN PLATELET VOLUME 7.4 FL (7.4-10.4); WHITE BLOOD COUNT 5.4 X10'3 (4.5-11.0)
[2019-06-30 05:23] LABS: BASOPHILS % (AUTO) 0.3 % (0-1); HEMOGLOBIN 7.2 g/dl (14.0-17.9); LYMPHOCYTES # (AUTO) 0.7 X10'3 (1.1-4.8); LYMPHOCYTES % (AUTO) 13.6 % (21-51); MEAN CORPUSCULAR HEMOGLOBIN 31.6 PG (27.0-31.0); MEAN CORPUSCULAR HGB CONC 35.9 g/dL (33.0-36.5); MEAN CORPUSCULAR VOLUME 88.1 FL (78-98); MONOCYTES # (AUTO) 1.6 X10'3 (0-0.9); MONOCYTES % (AUTO) 28.8 % (2-12); NEUTROPHILS % (AUTO) 55.3 % (42-75); RED BLOOD COUNT 2.28 X10'6 (4.70-6.10); RED CELL DISTRIBUTION WIDTH 14.3 % (11.5-14.5)
[2019-06-30 05:31] LABS: HEMATOCRIT 20.1 % (42.0-52.0); PLATELET COUNT 49 X10'3 (140-440)
--- NOTE | 2019-06-30 05:35 | NUR ---
CRITICAL FARM CONSULTANT September called and left a message to call back for patient's critical values. HCT 20.1, PLT 29. Will wait for a call back.
[2019-06-30 05:54] LABS: ALANINE AMINOTRANSFERASE 77 U/L (12-78); ALBUMIN 3.4 G/DL (3.4-5.0); ALBUMIN/GLOBULIN RATIO 0.7 (1.1-1.5); ALKALINE PHOSPHATASE 114 IU/L (46-116); ANION GAP 10 (8-16); ASPARTATE AMINO TRANSFERASE 65 U/L (10-37); BILIRUBIN,TOTAL 0.7 MG/DL (0.1-1.0); BLOOD UREA NITROGEN 37 MG/DL (7-18); CALCIUM 8.7 MG/DL (8.5-10.1); CHLORIDE 102 MMOL/L (99-107); CREATININE 7.46 MG/DL (0.60-1.10); GLUCOSE 96 MG/DL (70-104); MAGNESIUM 2.1 MG/DL (1.5-2.4); PHOSPHORUS 6.1 MG/DL (2.3-4.5); POTASSIUM 5.5 MMOL/L (3.5-5.1); SODIUM 141 MMOL/L (135-145); TOTAL CARBON DIOXIDE 29.1 MMOL/L (24-32); eGFR 8 ML/MIN
--- NOTE | 2019-06-30 06:00 | NUR ---
Critical orders recieved. YASSINE Black called back, order for a CBC at 1200 today for retest. This information has been passed on to day shift.
[2019-06-30 06:09] LABS: TOTAL CELLS COUNTED 100
[2019-06-30 06:10] LABS: PLATELET ESTIMATE DECREASED
--- NOTE | 2019-06-30 06:10 | NUR ---
Patient in room PCU 3023. I have received report from Latisha VIERA and had the opportunity to ask questions and assume patient care.
[2019-06-30 06:12] LABS: ANISOCYTOSIS 1+
--- NOTE | 2019-06-30 06:41 | NUR ---
Problems reprioritized. Patient report given, questions answered & plan of care reviewed with Wilton VIERA and Latisha VIERA.
[2019-06-30] MEDS: amLODIPine 5mg tablet PO SCH (07:56)
[2019-06-30] MEDS: lisinopril 10 MG tablet PO SCH (07:56)
[2019-06-30] MEDS: acyclovir 200 MG capsule PO SCH (07:56)
[2019-06-30] MEDS: folic acid 1mg tablet PO SCH (07:57)
[2019-06-30] MEDS: sevelamer carbonate 800mg tablet PO SCH ×3 (07:57→16:43)
[2019-06-30] MEDS: folic acid/vitamin B complex w/vitamin C 0.8mg tablet PO SCH (07:57)
[2019-06-30] MEDS ORDERED: calcium chloride inj. 2,000 MG in normal saline 250ml IV soln 250 ML IV ONE (09:40)
[2019-06-30] MEDS ORDERED: citrate dextrose 1000ml IV sol 1,000 ML HE ONE (09:40)
[2019-06-30 12:32] LABS: BASOPHILS # (AUTO) 0.1 X10'3 (0-0.2); EOSINOPHILS # (AUTO) 0.1 X10'3 (0-0.9); EOSINOPHILS % (AUTO) 1.8 % (0-6); LYMPHOCYTES # (AUTO) 0.8 X10'3 (1.1-4.8); LYMPHOCYTES % (AUTO) 16.2 % (21-51); MEAN CORPUSCULAR HEMOGLOBIN 31.6 PG (27.0-31.0); MEAN CORPUSCULAR HGB CONC 34.4 g/dL (33.0-36.5); MEAN CORPUSCULAR VOLUME 91.7 FL (78-98); MEAN PLATELET VOLUME 7.9 FL (7.4-10.4); MONOCYTES # (AUTO) 1.8 X10'3 (0-0.9); MONOCYTES % (AUTO) 35.7 % (2-12); NEUTROPHILS # (AUTO) 2.3 X10'3 (1.8-7.7); NEUTROPHILS % (AUTO) 45.3 % (42-75); RED BLOOD COUNT 1.93 X10'6 (4.70-6.10)
[2019-06-30 12:46] LABS: HEMATOCRIT 17.7 % (42.0-52.0); HEMOGLOBIN 6.1 g/dl (14.0-17.9); PLATELET COUNT 31 X10'3 (140-440)
--- NOTE | 2019-06-30 14:11 | NUR ---
reassessment: Pt PO 100% renal diet meeting needs on HD. LBM 06/28. Will continue to monitor for additional protein needs if PO declines on HD. Recommendations: 1) Continue renal diet 2) Phos binder with meals per MD approval 3) Nephrovite and folic on HD and chemotherapy per MD 4) Wt per rx Addendum: 06/30/19 at [address] Amended: Links added.
--- NOTE | 2019-06-30 18:00 | NUR ---
Patient in room PCU 3023. I have received report from Monae VIERA and had the opportunity to ask questions and assume patient care.
--- NOTE | 2019-06-30 18:21 | NUR ---
Problems reprioritized. Patient report given, questions answered & plan of care reviewed with Latisha VIERA. Patient stable at time of transfer of care.
--- NOTE | 2019-06-30 18:33 | NUR ---
Orientee documentation: I have reviewed and agree with all interventions, assessments performed and documented by Latrice VIERA. Orientee Medication Administration: For this medication-pass time frame, all medication were reviewed, dispensed, administered and documented per hospital policy by Latrice VIERA
[2019-07-01] VITALS (11 sets, daily range): BP systolic 102–129; BP diastolic 66–86
--- NOTE | 2019-07-01 05:00 | NUR ---
END NOC NOTE Patient slept well all night. Will continue to monitor.
[2019-07-01 06:13] LABS: MEAN CORPUSCULAR HEMOGLOBIN 31.4 PG (27.0-31.0); MEAN CORPUSCULAR HGB CONC 35.7 g/dL (33.0-36.5); MEAN PLATELET VOLUME 7.8 FL (7.4-10.4); RED BLOOD COUNT 2.05 X10'6 (4.70-6.10); RED CELL DISTRIBUTION WIDTH 13.9 % (11.5-14.5); WHITE BLOOD COUNT 4.9 X10'3 (4.5-11.0)
[2019-07-01 06:19] LABS: ALANINE AMINOTRANSFERASE 86 U/L (12-78); ALBUMIN 3.3 G/DL (3.4-5.0); ALBUMIN/GLOBULIN RATIO 0.8 (1.1-1.5); ALKALINE PHOSPHATASE 117 IU/L (46-116); ANION GAP 11 (8-16); ASPARTATE AMINO TRANSFERASE 68 U/L (10-37); BILIRUBIN,TOTAL 0.5 MG/DL (0.1-1.0); BLOOD UREA NITROGEN 55 MG/DL (7-18); BUN/CREATININE RATIO 5.8 (5.4-32.0); CALCIUM 8.8 MG/DL (8.5-10.1); CHLORIDE 101 MMOL/L (99-107); CREATININE 9.48 MG/DL (0.60-1.10); GLUCOSE 94 MG/DL (70-104); PHOSPHORUS 6.6 MG/DL (2.3-4.5); POTASSIUM 5.2 MMOL/L (3.5-5.1); SODIUM 140 MMOL/L (135-145); TOTAL CARBON DIOXIDE 28.3 MMOL/L (24-32); TOTAL PROTEIN 7.5 G/DL (6.4-8.2); eGFR 6 ML/MIN
[2019-07-01 06:27] LABS: HEMATOCRIT 18.1 % (42.0-52.0); HEMOGLOBIN 6.5 g/dl (14.0-17.9)
[2019-07-01 06:28] LABS: PLATELET COUNT 43 X10'3 (140-440)
--- NOTE | 2019-07-01 06:46 | NUR ---
Patient in room PCU 3023. I have received report from Latisha VIERA and had the opportunity to ask questions and assume patient care.
--- NOTE | 2019-07-01 06:46 | NUR ---
Problems reprioritized. Patient report given, questions answered & plan of care reviewed with Monae VIERA.
[2019-07-01] MEDS: acyclovir 200 MG capsule PO SCH (07:13)
[2019-07-01] MEDS: folic acid/vitamin B complex w/vitamin C 0.8mg tablet PO SCH (07:13)
[2019-07-01] MEDS: folic acid 1mg tablet PO SCH (07:13)
[2019-07-01] MEDS: amLODIPine 5mg tablet PO SCH (07:14)
[2019-07-01] MEDS: lisinopril 10 MG tablet PO SCH (07:14)
[2019-07-01] MEDS: sevelamer carbonate 800mg tablet PO SCH ×3 (07:46→18:01)
[2019-07-01] MEDS ORDERED: albumin (human) 25% 100ml IV 100 ML IV PRN (08:35)
[2019-07-01] MEDS ORDERED: epoetin 20,000 units/ml inj IV ONE (08:35)
[2019-07-01 11:33] LABS: TOTAL CELLS COUNTED 200
[2019-07-01 11:40] LABS: ELLIPTOCYTES FEW; PLATELET ESTIMATE DECREASED; POLYCHROMASIA FEW; ROULEAUX 1+; STOMATOCYTES FEW
[2019-07-01 11:42] LABS: SMUDGE CELLS 1+
[2019-07-01] MEDS ORDERED: heparin 1,000 units/ml 10ml inj HE ONE ×2 (14:30)
[2019-07-01] MEDS: acetaminophen 325mg tablet PO PRN (16:33)
--- NOTE | 2019-07-01 18:15 | NUR ---
Problems reprioritized. Patient report given, questions answered & plan of care reviewed with Latisha VIERA. Patient stable at time of transfer of care.
[2019-07-01] MEDS ORDERED: dexamethasone sod phosphate 10mg/ml inj IV STA (19:48)
[2019-07-02] VITALS (13 sets, daily range): BP systolic 101–140; BP diastolic 56–89
--- NOTE | 2019-07-02 05:10 | NUR ---
Patient in room U 3023. I have received report from Latrice VIERA/Monae VIERA and had the opportunity to ask questions and assume patient care. Addendum: 07/02/19 at 0512 by Latisha Mariscal RN TIME 1800, 07/01/19
--- NOTE | 2019-07-02 05:12 | NUR ---
End NOC note Decadron was given in my shift per MD order, verified with September NUISANCE WILDLIFE TRAPPER. Patient was able to sleep tonight. Is awaiting results for the bone marrow biopsy. Will continue to monitor.
[2019-07-02 05:34] LABS: BASOPHILS # (AUTO) 0.2 X10'3 (0-0.2); EOSINOPHILS # (AUTO) 0.1 X10'3 (0-0.9); EOSINOPHILS % (AUTO) 2.7 % (0-6); HEMATOCRIT 24.4 % (42.0-52.0); HEMOGLOBIN 8.8 g/dl (14.0-17.9); NEUTROPHILS # (AUTO) 3.3 X10'3 (1.8-7.7); WHITE BLOOD COUNT 5.5 X10'3 (4.5-11.0)
[2019-07-02 05:37] LABS: BASOPHILS % (AUTO) 3.1 % (0-1); LYMPHOCYTES # (AUTO) 0.9 X10'3 (1.1-4.8); LYMPHOCYTES % (AUTO) 17.4 % (21-51); MEAN CORPUSCULAR HEMOGLOBIN 31.6 PG (27.0-31.0); MEAN CORPUSCULAR HGB CONC 35.9 g/dL (33.0-36.5); MEAN PLATELET VOLUME 7.7 FL (7.4-10.4); MONOCYTES # (AUTO) 0.9 X10'3 (0-0.9); MONOCYTES % (AUTO) 16.3 % (2-12); NEUTROPHILS % (AUTO) 60.5 % (42-75); RED BLOOD COUNT 2.78 X10'6 (4.70-6.10); RED CELL DISTRIBUTION WIDTH 13.9 % (11.5-14.5)
[2019-07-02 05:45] LABS: ALANINE AMINOTRANSFERASE 90 U/L (12-78); ALBUMIN 3.5 G/DL (3.4-5.0); ALBUMIN/GLOBULIN RATIO 0.8 (1.1-1.5); ALKALINE PHOSPHATASE 118 IU/L (46-116); ANION GAP 13 (8-16); ASPARTATE AMINO TRANSFERASE 54 U/L (10-37); BILIRUBIN,TOTAL 0.7 MG/DL (0.1-1.0); BLOOD UREA NITROGEN 34 MG/DL (7-18); BUN/CREATININE RATIO 5.3 (5.4-32.0); CALCIUM 8.2 MG/DL (8.5-10.1); CHLORIDE 99 MMOL/L (99-107); CREATININE 6.39 MG/DL (0.60-1.10); GLUCOSE 147 MG/DL (70-104); MAGNESIUM 1.9 MG/DL (1.5-2.4); PHOSPHORUS 5.6 MG/DL (2.3-4.5); POTASSIUM 5.9 MMOL/L (3.5-5.1); SODIUM 138 MMOL/L (135-145); TOTAL CARBON DIOXIDE 25.9 MMOL/L (24-32); TOTAL PROTEIN 8.1 G/DL (6.4-8.2); eGFR 9 ML/MIN
--- NOTE | 2019-07-02 05:45 | NUR ---
10 beat SVT at 0538 BP 101/62(75) , HR 68, Mg 2.0, Potassium 5.2. Messaged September, waiting for a call back.
--- NOTE | 2019-07-02 05:52 | NUR ---
Call back about SVT beats September SPEECH AND LANGUAGE SPECIALIST called back, orders will be "put in after running them by MD Aguirre". Will pass on to AM shift.
[2019-07-02] MEDS ORDERED: sodium polystyrene sulfonate 15gm/60ml oral suspension PO ONE (06:05)
[2019-07-02 06:19] LABS: PLATELET COUNT 40 X10'3 (140-440)
--- NOTE | 2019-07-02 06:31 | NUR ---
Patient in room PCU 3023. I have received report from Latisha VIERA and had the opportunity to ask questions and assume patient care.
--- NOTE | 2019-07-02 06:32 | NUR ---
Problems reprioritized. Patient report given, questions answered & plan of care reviewed with Monae VIERA and Latrice VIERA.
[2019-07-02 07:11] LABS: NUCLEATED RED BLOOD CELLS 1 /100WBC (0-0); TOTAL CELLS COUNTED 100
[2019-07-02 07:12] LABS: PLATELET ESTIMATE DECREASED
[2019-07-02 07:14] LABS: ANISOCYTOSIS FEW; SMUDGE CELLS FEW
[2019-07-02] MEDS: folic acid 1mg tablet PO SCH (07:15)
[2019-07-02] MEDS: amLODIPine 5mg tablet PO SCH (07:15)
[2019-07-02] MEDS: acyclovir 200 MG capsule PO SCH (07:15)
[2019-07-02] MEDS: folic acid/vitamin B complex w/vitamin C 0.8mg tablet PO SCH (07:16)
[2019-07-02] MEDS: lisinopril 10 MG tablet PO SCH (07:16)
[2019-07-02] MEDS: sevelamer carbonate 800mg tablet PO SCH (07:28)
[2019-07-02] MEDS ORDERED: calcium chloride inj. 2,000 MG in normal saline 250ml IV soln 250 ML IV ONE (08:15)
[2019-07-02] MEDS ORDERED: citrate dextrose 1000ml IV sol 1,000 ML HE ONE (08:15)
--- NOTE | 2019-07-02 12:58 | NUR ---
Report called to MAXIMILIANO Varela at [facility] oncology unit. LISSETH picked up patient, all patient belongings packed up and sent with patient.
== END 2019-07-02 12:58 | disposition short-term general hospital (02) | DRG 840 ==
LOC: ER 22:14 → ED HOLD 23:42 → PCU 3S 06-21 01:36
PROVIDERS: ADMIT Internal Medicine Critical Care Medicine; ATTEND Internal Medicine Critical Care Medicine
PROC: 30233N1 Transfusion of Nonautologous Red Blood Cells into Peripheral Vein, Percutaneous Approach (ICD-10-PCS; 2019-06-22)
PROC: 30233R1 Transfusion of Nonautologous Platelets into Peripheral Vein, Percutaneous Approach (ICD-10-PCS; 2019-06-22)
PROC: 5A1D70Z Performance of Urinary Filtration, Intermittent, Less than 6 Hours Per Day (ICD-10-PCS; 2019-06-22)
PROC: 30233N1 Transfusion of Nonautologous Red Blood Cells into Peripheral Vein, Percutaneous Approach (ICD-10-PCS; 2019-06-25)
PROC: 07DR3ZX Extraction of Iliac Bone Marrow, Percutaneous Approach, Diagnostic (ICD-10-PCS; 2019-06-25)
PROC: 5A1D70Z Performance of Urinary Filtration, Intermittent, Less than 6 Hours Per Day (ICD-10-PCS; 2019-06-25)
PROC: 30233K1 Transfusion of Nonautologous Frozen Plasma into Peripheral Vein, Percutaneous Approach (ICD-10-PCS; principal; 2019-06-26)
PROC: 30233K1 Transfusion of Nonautologous Frozen Plasma into Peripheral Vein, Percutaneous Approach (ICD-10-PCS; 2019-06-26)
PROC: 30233N1 Transfusion of Nonautologous Red Blood Cells into Peripheral Vein, Percutaneous Approach (ICD-10-PCS; 2019-06-26)
PROC: 5A1D70Z Performance of Urinary Filtration, Intermittent, Less than 6 Hours Per Day (ICD-10-PCS; 2019-06-26)
PROC: 5A1D70Z Performance of Urinary Filtration, Intermittent, Less than 6 Hours Per Day (ICD-10-PCS; 2019-06-27)
PROC: 30233K1 Transfusion of Nonautologous Frozen Plasma into Peripheral Vein, Percutaneous Approach (ICD-10-PCS; 2019-06-28)
PROC: 5A1D70Z Performance of Urinary Filtration, Intermittent, Less than 6 Hours Per Day (ICD-10-PCS; 2019-06-29)
PROC: 30233K1 Transfusion of Nonautologous Frozen Plasma into Peripheral Vein, Percutaneous Approach (ICD-10-PCS; 2019-06-30)
PROC: 5A1D70Z Performance of Urinary Filtration, Intermittent, Less than 6 Hours Per Day (ICD-10-PCS; 2019-06-30)
PROC: 30233N1 Transfusion of Nonautologous Red Blood Cells into Peripheral Vein, Percutaneous Approach (ICD-10-PCS; 2019-07-01)
PROC: 30233K1 Transfusion of Nonautologous Frozen Plasma into Peripheral Vein, Percutaneous Approach (ICD-10-PCS; 2019-07-02)
PROC: 5A1D70Z Performance of Urinary Filtration, Intermittent, Less than 6 Hours Per Day (ICD-10-PCS; 2019-07-02)
DX: C90.00 Multiple myeloma not having achieved remission (principal); N18.6 End stage renal disease; D58.9 Hereditary hemolytic anemia, unspecified; D63.1 Anemia in chronic kidney disease; Z99.2 Dependence on renal dialysis
CPT/HCPCS: 36415; 80053; 82272; 83010; 83615; 83735; 84100; 84145; 85025; 85027; 85045; 85610; 85730; 86157; 86644; 86870; 86880; 86885; 86900; 86901; 86902; 86905; 86920; 86922; 86945; 87081; 90935; 93005; 99285; G0257; G0378; J1100; J1642; J1644; J7050; P9016; P9017; P9035; P9059; Q4081

== ENCOUNTER 2020-06-10 06:08 | Day surgery (SDC) | payer OTHER ==
[~2020-06-10 06:08] MED LIST: ACYC-202 PO; AMLO10TA PO; FOLI0.8T7 PO; LISI10TA4 PO; ONDA8TAB13 PO
[2020-06-10 07:00] VITALS: BP 126/76
[2020-06-10] MEDS ORDERED: FLO0.4C PO (07:16)
[2020-06-10] MEDS ORDERED: LENA5CAP PO (07:16)
[2020-06-10] MEDS ORDERED: FURO80TA3 PO (07:16)
[2020-06-10 07:29] LABS: BASOPHILS % (AUTO) 1.4 % (0-1); EOSINOPHILS # (AUTO) 0.2 X10'3 (0-0.9); EOSINOPHILS % (AUTO) 5.9 % (0-6); HEMATOCRIT 26.4 % (42.0-52.0); HEMOGLOBIN 8.7 g/dl (14.0-17.9); LYMPHOCYTES # (AUTO) 0.4 X10'3 (1.1-4.8); LYMPHOCYTES % (AUTO) 10.7 % (21-51); MEAN CORPUSCULAR HEMOGLOBIN 36.3 PG (27.0-31.0); MEAN CORPUSCULAR HGB CONC 32.9 g/dL (33.0-36.5); MEAN CORPUSCULAR VOLUME 110.2 FL (78-98); MEAN PLATELET VOLUME 8.7 FL (7.4-10.4); MONOCYTES # (AUTO) 0.6 X10'3 (0-0.9); MONOCYTES % (AUTO) 16.5 % (2-12); NEUTROPHILS # (AUTO) 2.2 X10'3 (1.8-7.7); NEUTROPHILS % (AUTO) 65.5 % (42-75); PLATELET COUNT 158 X10'3 (140-440); RED CELL DISTRIBUTION WIDTH 15.9 % (11.5-14.5); WHITE BLOOD COUNT 3.4 X10'3 (4.5-11.0)
[2020-06-10 07:39] LABS: ALBUMIN 2.8 G/DL (3.4-5.0); ANION GAP 15 (8-16); BLOOD UREA NITROGEN 59 MG/DL (7-18); BUN/CREATININE RATIO 3.6 (5.4-32.0); CALCIUM 8.6 MG/DL (8.5-10.1); CHLORIDE 99 MMOL/L (99-107); CREATININE 16.25 MG/DL (0.60-1.10); GLUCOSE 101 MG/DL (70-104); POTASSIUM 3.5 MMOL/L (3.5-5.1); SODIUM 137 MMOL/L (135-145); TOTAL CARBON DIOXIDE 23.2 MMOL/L (24-32); eGFR 3 ML/MIN
[2020-06-10 08:18] LABS: PLATELET ESTIMATE NORMAL; TOTAL CELLS COUNTED 100
[2020-06-10] MEDS ORDERED: heparin 1,000unit/ml 10ml vial 10 ML ONE (08:18)
[2020-06-10 08:20] LABS: STOMATOCYTES 2+
[2020-06-10] MEDS ORDERED: LIDOcaine 1%/PF 5ML 10 MG/ML VIAL ONE (09:01)
[2020-06-10 09:30] VITALS: BP 139/82
== END 2020-06-10 09:45 | disposition home or self-care (01) ==
LOC: SSTAY O 06:08
PROVIDERS: ATTEND Radiology Vascular & Interventional Radiology
DX: N18.6 End stage renal disease (principal); Z79.899 Other long term (current) drug therapy
CPT/HCPCS: 36558; 76937; 77001; 80048; 85025; C1750; C1769; C1894; J1644; 85007; A9270

== ENCOUNTER 2020-11-09 06:03 | Day surgery (SDC) | payer OTHER ==
[~2020-11-09] VITALS: Ht 175.3 cm; Wt 93.3 kg
[2020-11-09] VITALS (20 sets, daily range): BP systolic 126–161; BP diastolic 78–98
[~2020-11-09 06:03] MED LIST changes: -AMLO10TA PO; +FLO0.4C PO; +FURO80TA3 PO; +LENA5CAP PO; -LISI10TA4 PO
[2020-11-09] MEDS ORDERED: POMA3CAP (06:40)
[2020-11-09] MEDS ORDERED: DEXA4TAB (06:40)
[2020-11-09] MEDS ORDERED: PHO667C (06:40)
[2020-11-09] MEDS ORDERED: HYDR-3972 PO (06:40)
[2020-11-09] MEDS ORDERED: CYAN-51 PO (06:40)
[2020-11-09] MEDS ORDERED: POMA3CAP PO (06:50)
[2020-11-09] MEDS ORDERED: FAMO20TA8 PO (06:50)
[2020-11-09] MEDS ORDERED: SENNOSIDES PO (06:50)
[2020-11-09] MEDS ORDERED: [UNRECOGNIZED DRUG - OTHER] PO (06:50)
[2020-11-09] MEDS ORDERED: ASPI-611 PO (06:50)
[2020-11-09] MEDS ORDERED: TIZA-189 PO (06:50)
[2020-11-09] MEDS ORDERED: [UNRECOGNIZED DRUG - OTHER] (06:50)
[2020-11-09 06:57] LABS: HEMATOCRIT 25.8 % (42.0-52.0); HEMOGLOBIN 8.6 g/dl (14.0-17.9); MEAN CORPUSCULAR HEMOGLOBIN 31.3 PG (27.0-31.0); MEAN CORPUSCULAR HGB CONC 33.5 g/dL (33.0-36.5); MEAN CORPUSCULAR VOLUME 93.3 FL (78-98); MEAN PLATELET VOLUME 7.7 FL (7.4-10.4); RED BLOOD COUNT 2.77 X10'6 (4.70-6.10); RED CELL DISTRIBUTION WIDTH 28.4 % (11.5-14.5); WHITE BLOOD COUNT 5.8 X10'3 (4.5-11.0)
[2020-11-09 07:03] LABS: PLATELET COUNT 37 X10'3 (140-440)
[2020-11-09 07:08] LABS: ALBUMIN 3.1 G/DL (3.4-5.0); ANION GAP 14 (8-16); BLOOD UREA NITROGEN 40 MG/DL (7-18); BUN/CREATININE RATIO 4.6 (5.4-32.0); CALCIUM 11.5 MG/DL (8.5-10.1); CHLORIDE 91 MMOL/L (99-107); CREATININE 8.62 MG/DL (0.60-1.10); GLUCOSE 99 MG/DL (70-104); POTASSIUM 4.5 MMOL/L (3.5-5.1); SODIUM 130 MMOL/L (135-145); TOTAL CARBON DIOXIDE 24.9 MMOL/L (24-32); eGFR 6 ML/MIN
[2020-11-09 08:01] LABS: TOTAL CELLS COUNTED 100
[2020-11-09 08:02] LABS: ANISOCYTOSIS 2+; PLATELET ESTIMATE DECREASED; SPHEROCYTES 1+
[2020-11-09] MEDS ORDERED: NORMAL SALINE IV ONE (10:05)
[2020-11-09] MEDS ORDERED: DESMOPRESSIN IV ONE (10:05)
[2020-11-09] MEDS ORDERED: desmopressin inj. 28 MCG in normal saline 100ml IV soln 93 ML IV ONE (10:25)
[2020-11-09] MEDS ORDERED: LORazepam 1 MG tablet PO ONE (12:25)
[2020-11-09 13:08] LABS: HEMATOCRIT 22.3 % (42.0-52.0)
[2020-11-09 13:10] LABS: HEMOGLOBIN 7.3 g/dl (14.0-17.9); MEAN CORPUSCULAR HEMOGLOBIN 31.2 PG (27.0-31.0); MEAN CORPUSCULAR HGB CONC 32.9 g/dL (33.0-36.5); MEAN CORPUSCULAR VOLUME 94.7 FL (78-98); MEAN PLATELET VOLUME 7.9 FL (7.4-10.4); PLATELET COUNT 53 X10'3 (140-440); RED BLOOD COUNT 2.36 X10'6 (4.70-6.10); RED CELL DISTRIBUTION WIDTH 28.6 % (11.5-14.5); WHITE BLOOD COUNT 4.9 X10'3 (4.5-11.0)
[2020-11-09] MEDS ORDERED: gelatin sponge, absorbable (Gelfoam 12-7MM) sponge TP ONE (13:41)
[2020-11-09 13:43] LABS: ANISOCYTOSIS 3+; PLATELET ESTIMATE DECREASED; TOTAL CELLS COUNTED 100
== END 2020-11-09 18:39 | disposition home or self-care (01) ==
LOC: SSTAY O 06:03
PROVIDERS: ATTEND Radiology Vascular & Interventional Radiology
DX: N28.89 Other specified disorders of kidney and ureter (principal); C83.39 Diffuse large B-cell lymphoma, extranodal and solid organ sites; D64.9 Anemia, unspecified; Z79.82 Long term (current) use of aspirin; Z79.899 Other long term (current) drug therapy; Z85.79 Personal history of other malignant neoplasms of lymphoid, hematopoietic and related tissues; Z99.2 Dependence on renal dialysis
CPT/HCPCS: 36415; 36430; 50200; 77012; 80048; 85025; 86870; 86885; 86900; 86901; 86902; 86905; J2597; P9035; 85007

== ENCOUNTER 2020-11-12 14:37 | Inpatient (IN) | payer OTHER ==
[~2020-11-12] VITALS: Ht 175.3 cm; Wt 98.0 kg
[~2020-11-12 14:37] MED LIST changes: +ASPI-611 PO; +CYAN-51 PO; +DEXA4TAB; +FAMO20TA8 PO; -FLO0.4C PO; +HYDR-3972 PO; -LENA5CAP PO; +PHO667C; +POMA3CAP; +POMA3CAP PO; +SENNOSIDES PO; +TIZA-189 PO; +[UNRECOGNIZED DRUG - OTHER]; +[UNRECOGNIZED DRUG - OTHER] PO
[2020-11-12] MEDS ORDERED: ACYC200C PO (15:04)
[2020-11-12 15:12] LABS: WHITE BLOOD COUNT 3.9 X10'3 (4.5-11.0)
[2020-11-12 15:13] LABS: MEAN CORPUSCULAR HEMOGLOBIN 30.8 PG (27.0-31.0); MEAN CORPUSCULAR HGB CONC 32.8 g/dL (33.0-36.5); MEAN CORPUSCULAR VOLUME 93.8 FL (78-98); MEAN PLATELET VOLUME 8.2 FL (7.4-10.4); RED BLOOD COUNT 2.12 X10'6 (4.70-6.10); RED CELL DISTRIBUTION WIDTH 28.4 % (11.5-14.5)
[2020-11-12] MEDS ORDERED: METH-797 PO (15:14)
[2020-11-12 15:15] LABS: HEMOGLOBIN 6.5 g/dl (14.0-17.9)
[2020-11-12 15:16] LABS: HEMATOCRIT 19.8 % (42.0-52.0)
[2020-11-12 15:17] LABS: ALANINE AMINOTRANSFERASE 15 U/L (12-78); ALBUMIN 2.4 G/DL (3.4-5.0); ALBUMIN/GLOBULIN RATIO 0.5 (1.1-1.5); ALKALINE PHOSPHATASE 77 IU/L (46-116); ANION GAP 13 (8-16); ASPARTATE AMINO TRANSFERASE 24 U/L (10-37); BILIRUBIN,TOTAL 0.5 MG/DL (0.1-1.0); BLOOD UREA NITROGEN 20 MG/DL (7-18); BUN/CREATININE RATIO 3.6 (5.4-32.0); CALCIUM 10.6 MG/DL (8.5-10.1); CHLORIDE 98 MMOL/L (99-107); CREATININE 5.63 MG/DL (0.60-1.10); GLUCOSE 84 MG/DL (70-104); PLATELET COUNT 33 X10'3 (140-440); POTASSIUM 4.1 MMOL/L (3.5-5.1); SODIUM 138 MMOL/L (135-145); TOTAL CARBON DIOXIDE 27.1 MMOL/L (24-32); TOTAL PROTEIN 6.8 G/DL (6.4-8.2); eGFR 10 ML/MIN
[2020-11-12] MEDS ORDERED: CYAN-51 PO (15:17)
[2020-11-12] MEDS ORDERED: PHO667C PO (15:17)
[2020-11-12] MEDS ORDERED: ASPI-611 PO (15:17)
[2020-11-12 15:19] LABS: TROPONIN I 0.09 NG/ML (0.0-0.05)
--- NOTE | 2020-11-12 15:43 | NUR ---
DR RUGGIERO AT BS
[2020-11-12] MEDS ORDERED: ondansetron/PF 4mg/2ml inj IV PRN (15:50)
[2020-11-12] MEDS ORDERED: morphine 2 MG/ML inj. syringe IV PRN (15:50)
[2020-11-12] MEDS ORDERED: magnesium 4gm in 100ml NS 100 ML IV PRN (15:50)
[2020-11-12] MEDS: normal saline 1000ml 1,000 ML IV SCH (15:50)
[2020-11-12] MEDS ORDERED: acetaminophen 325mg tablet PO PRN ×2 (15:50)
[2020-11-12] MEDS ORDERED: potassium Cl 20 mEq SR tablet PO PRN ×2 (15:50)
[2020-11-12] MEDS ORDERED: magnesium 2GM in 50ml NS 50 ML IV PRN (15:50)
[2020-11-12] MEDS ORDERED: magnesium Cl slow-release 64mg tablet PO PRN (15:50)
[2020-11-12] MEDS ORDERED: potassium Cl 40MEQ/1/2NS 520ml 520 ML IV PRN ×2 (15:50)
[2020-11-12 15:53] LABS: TOTAL CELLS COUNTED 200
[2020-11-12 15:54] LABS: PLATELET ESTIMATE DECREASED
[2020-11-12 15:55] LABS: ANISOCYTOSIS 3+; HYPERSEGMENTED NEUTROPHILS 1+
[2020-11-12 15:56] LABS: ROULEAUX 1+
[2020-11-12 16:00] LABS: POLYCHROMASIA 1+
[2020-11-12] MEDS ORDERED: vancomycin/NS 1 GM ADD-VANTAGE 250 ML IV PRN (16:25)
[2020-11-12] MEDS ORDERED: pamidronate disodium inj 60 MG in normal saline 500ml IV soln 500 ML IV ONE ×2 (16:45→22:05)
--- NOTE | 2020-11-12 16:45 | NUR ---
SPOKE WITH CAMPOS IN PHARM RE VANCO DOSE NOTIFIED THAT PT HAD VANCO 2G @ 1130 AT [facility]. CAMPOS WILL TIME NEXT VANCO DOSE ACCORDINGLY
[2020-11-12 16:48] LABS: NUCLEATED RED BLOOD CELLS 1 /100WBC (0-0)
[2020-11-12] MEDS ORDERED: vancomycin/NS 1 GM ADD-VANTAGE 250 ML IV ONE ×2 (17:00)
--- NOTE | 2020-11-12 17:00 | NUR ---
Patient in room ED 10. I have received report from MAXIMILIANO Soto in ED and had the opportunity to ask questions. Pending patient arrival.
--- NOTE | 2020-11-12 17:07 | NUR ---
PER REQUESTED BY CN ON ACCE DR JORGENSEN CALLED TO INQUIER IF SHE IS AWARE OF PT H/H AND PLT LEVEL. DR JORGENSEN IS AWARE AND STATES SHE HAS LOOKED BACK AT HIS OTHER VISITS AND HE HAS CHRONIC ANEMIA. NO ORDERS AT THIS TIME FOR TRANSFUSIONS.
[2020-11-12] MEDS ORDERED: CEFTAZIDIME IV SCH (17:15)
[2020-11-12] MEDS ORDERED: D5W IV SCH (17:15)
[2020-11-12 17:45] VITALS: BP 138/89
--- NOTE | 2020-11-12 17:45 | NUR ---
NOTIFIED BY BLOOD BANK THAT PTS BLOOD HAS TO COME FROM [place] D/T MULTIPLE ANTIBODIES. ETA APROX 0000. CALLED ACCE AND SPOKE TO MARY WITH UPDATE
--- NOTE | 2020-11-12 17:45 | NUR ---
Pt arrived on unit in W/C. Was able to transfer from W/C to bed with ease. No C/O pain. Pt is alert and is able to make his needs known. VSS. Monitoring patient
--- NOTE | 2020-11-12 18:40 | NUR ---
Problems reprioritized. Patient report given, questions answered & plan of care reviewed with MAXIMILIANO Quintana.
--- NOTE | 2020-11-12 18:47 | NUR ---
PAGER ID: [phone] MESSAGE: [id number] SAMANTHA DALE . LOOKING FOR ORDER CLARIFICATION AND PLT COUNT IS CL @ 33. THANK YOU ACCE UNIT [id number] . ALANA VIERA
--- NOTE | 2020-11-12 18:56 | NUR ---
SPOKE TO DR. JORGENSEN , ORDERS ARE TO CHANGE NS TO 50CC HR, PLTS ARE NOT NEEDED FOR REPLACEMENT UNTIL LESS THAN 20,
[2020-11-12 19:00] VITALS: BP 144/78
[2020-11-12] MEDS: calcium acetate 667mg (PhosLO) capsule PO SCH (19:59)
[2020-11-12] MEDS: K and/or MAG REPLACEMENT MC SCH (20:00)
[2020-11-12] MEDS: docusate sod 100mg capsule PO SCH (20:00)
[2020-11-12] MEDS ORDERED: heparin, porcine 5000 units/ml vial SQ SCH (20:00)
[2020-11-12] MEDS ORDERED: cefTAZidime inj 2 GM in normal saline 100ml IV soln 100 ML IV SCH (20:00)
[2020-11-12] MEDS: pantoprazole 40mg Tablet.DR PO SCH (20:22)
[2020-11-12] MEDS: acyclovir 200 MG capsule PO SCH (20:22)
[2020-11-12] MEDS ORDERED: temazepam 15mg capsule PO PRN (21:00)
--- NOTE | 2020-11-12 21:56 | NUR ---
PATIENT IS A VERY POOR HISTORIAN UNABLE TO OBTAIN FULL ADMISSION/DART AT THIS TIME
[2020-11-12 22:00] VITALS: BP 166/87
[2020-11-13] VITALS (19 sets, daily range): BP systolic 125–181; BP diastolic 58–113
--- NOTE | 2020-11-13 06:15 | NUR ---
Patient in room MED 310. I have received report from MAXIMILIANO Quintana and had the opportunity to ask questions and assume patient care.
[2020-11-13 07:07] LABS: WHITE BLOOD COUNT 2.8 X10'3 (4.5-11.0)
[2020-11-13 07:10] LABS: MEAN CORPUSCULAR HEMOGLOBIN 31.4 PG (27.0-31.0); MEAN CORPUSCULAR HGB CONC 32.9 g/dL (33.0-36.5); MEAN CORPUSCULAR VOLUME 95.4 FL (78-98); MEAN PLATELET VOLUME 7.7 FL (7.4-10.4)
[2020-11-13 07:19] LABS: HEMATOCRIT 19.1 % (42.0-52.0); HEMOGLOBIN 6.3 g/dl (14.0-17.9)
[2020-11-13 07:20] LABS: PLATELET COUNT 25 X10'3 (140-440)
--- NOTE | 2020-11-13 07:26 | NUR ---
PAGER ID: [phone] MESSAGE: Ranjeet Amaya Room 310. Critical H/H 6.3/19.1, Plt 25, Blood is ready - need consent signed by . Will come to you. Please advise. Mary [phone]
[2020-11-13 07:35] LABS: ALANINE AMINOTRANSFERASE 15 U/L (12-78); ALBUMIN 2.2 G/DL (3.4-5.0); ALBUMIN/GLOBULIN RATIO 0.5 (1.1-1.5); ALKALINE PHOSPHATASE 68 IU/L (46-116); ANION GAP 13 (8-16); ASPARTATE AMINO TRANSFERASE 18 U/L (10-37); BILIRUBIN,TOTAL 0.4 MG/DL (0.1-1.0); BLOOD UREA NITROGEN 33 MG/DL (7-18); BUN/CREATININE RATIO 4.3 (5.4-32.0); CALCIUM 11.3 MG/DL (8.5-10.1); CHLORIDE 97 MMOL/L (99-107); CREATININE 7.61 MG/DL (0.60-1.10); GLUCOSE 105 MG/DL (70-104); MAGNESIUM 1.9 MG/DL (1.5-2.4); SODIUM 138 MMOL/L (135-145); TOTAL CARBON DIOXIDE 28.5 MMOL/L (24-32); TOTAL PROTEIN 6.5 G/DL (6.4-8.2); VANCOMYCIN,RANDOM 25.3 UG/ML; eGFR 7 ML/MIN
[2020-11-13] MEDS: VANCOMYCIN LEVEL IV SCH (07:50)
[2020-11-13 07:56] LABS: PLATELET ESTIMATE DECREASED; TOTAL CELLS COUNTED 100
[2020-11-13 07:57] LABS: ANISOCYTOSIS 3+; POLYCHROMASIA FEW
[2020-11-13] MEDS: K and/or MAG REPLACEMENT MC SCH ×2 (08:00→20:00)
[2020-11-13] MEDS: POMALIDOMIDE 3 MG PO SCH (08:00)
--- NOTE | 2020-11-13 08:12 | NUR ---
PAGER ID: [phone] MESSAGE: Ranjeet Amaya Room 310. Blood is ready. Need informed consent from MD to administer blood. Please advise. Mary [phone]
[2020-11-13] MEDS: normal saline 1000ml 1,000 ML IV SCH ×2 (08:22→20:19)
[2020-11-13] MEDS: docusate sod 100mg capsule PO SCH ×2 (09:55→20:00)
[2020-11-13] MEDS: cefTAZidime inj. 1 GM in normal saline 100ml IV soln 100 ML IV SCH (09:55)
[2020-11-13] MEDS: acyclovir 200 MG capsule PO SCH ×2 (09:56→20:00)
[2020-11-13] MEDS: cyanocobalamin 500mcg tablet PO SCH (09:56)
[2020-11-13] MEDS: pantoprazole 40mg Tablet.DR PO SCH ×2 (09:56→20:00)
[2020-11-13] MEDS: aspirin 81mg tablet.DR PO SCH (09:57)
[2020-11-13] MEDS: calcium acetate 667mg (PhosLO) capsule PO SCH ×3 (10:03→18:02)
[2020-11-13] MEDS ORDERED: furosemide 20 MG/2 ML vial IV ONE (11:40)
[2020-11-13] MEDS: HYDROcodone/acetaminophen 5mg/325mg tablet PO PRN (12:52)
[2020-11-13 16:29] LABS: HEMOGLOBIN 8.8 g/dl (14.0-17.9)
[2020-11-13 16:31] LABS: HEMATOCRIT 26.5 % (42.0-52.0); MEAN CORPUSCULAR HGB CONC 33.3 g/dL (33.0-36.5); MEAN CORPUSCULAR VOLUME 93.3 FL (78-98); MEAN PLATELET VOLUME 7.9 FL (7.4-10.4); RED BLOOD COUNT 2.84 X10'6 (4.70-6.10); RED CELL DISTRIBUTION WIDTH 23.5 % (11.5-14.5); WHITE BLOOD COUNT 3.2 X10'3 (4.5-11.0)
[2020-11-13 16:55] LABS: PLATELET COUNT 25 X10'3 (140-440)
[2020-11-13 16:59] LABS: ANISOCYTOSIS 3+; PLATELET ESTIMATE DECREASED; TOTAL CELLS COUNTED 100
[2020-11-13 17:00] LABS: HYPOCHROMASIA 1+
--- NOTE | 2020-11-13 17:00 | NUR ---
PAGER ID: [phone] MESSAGE: Ranjeet Amaya. Room 310. Lab values H/H increased to 8.8/26.6 after 2 units of blood. Plt stayed the same at 25. Thanks, Mary [phone]
--- NOTE | 2020-11-13 18:14 | NUR ---
Problems reprioritized. Patient report given, questions answered & plan of care reviewed with MAXIMILIANO Quintana.
--- NOTE | 2020-11-14 00:36 | NUR ---
PATIENT BELIEVES HE IS HOME, DOES NOT RECALL DATE OR TIME . O2 SATS HAS BEEN CONSISTENTLY IN HIGH 80S . PLACED ON 2L O2 , SATS UP TO 92-95%. PATIENT MAY BENEFIT FROM AN O2 HOME EVAL WELL SHELL PLATER TO ASSIST WITH MED MANAGEMENT AND SAFETY . CONSULT IS IN AND WILL RELAY INFO TO DAY SHIFT RN WELL PROFESSOR OF GENETICS KRYSTINA
[2020-11-14 02:00] VITALS: BP 165/89
[2020-11-14 06:00] VITALS: BP 163/87
[2020-11-14] MEDS ORDERED: normal saline 1000ml 100 ML IV PRN (08:00)
[2020-11-14] MEDS ORDERED: epoetin 20,000 units/ml inj IV ONE (08:00)
[2020-11-14] MEDS ORDERED: LIDOcaine 1% (10mg/ml) 2ml vial SQ ONE (08:00)
[2020-11-14] MEDS ORDERED: normal saline 1000ml 250 ML IV PRN (08:00)
[2020-11-14 08:13] LABS: HEMOGLOBIN 8.6 g/dl (14.0-17.9)
[2020-11-14 08:15] LABS: HEMATOCRIT 25.5 % (42.0-52.0); MEAN CORPUSCULAR HEMOGLOBIN 31.3 PG (27.0-31.0); MEAN CORPUSCULAR HGB CONC 33.6 g/dL (33.0-36.5); MEAN PLATELET VOLUME 7.7 FL (7.4-10.4); RED BLOOD COUNT 2.74 X10'6 (4.70-6.10); RED CELL DISTRIBUTION WIDTH 24.1 % (11.5-14.5); WHITE BLOOD COUNT 2.4 X10'3 (4.5-11.0)
[2020-11-14 08:21] LABS: PLATELET COUNT 22 X10'3 (140-440)
[2020-11-14 08:27] LABS: ALANINE AMINOTRANSFERASE 15 U/L (12-78); ALBUMIN 2.2 G/DL (3.4-5.0); ALBUMIN/GLOBULIN RATIO 0.5 (1.1-1.5); ALKALINE PHOSPHATASE 68 IU/L (46-116); ANION GAP 13 (8-16); ASPARTATE AMINO TRANSFERASE 28 U/L (10-37); BILIRUBIN,TOTAL 0.4 MG/DL (0.1-1.0); CHLORIDE 97 MMOL/L (99-107); CREATININE 9.44 MG/DL (0.60-1.10); GLUCOSE 120 MG/DL (70-104); MAGNESIUM 1.8 MG/DL (1.5-2.4); POTASSIUM 4.4 MMOL/L (3.5-5.1); SODIUM 135 MMOL/L (135-145); TOTAL CARBON DIOXIDE 25.3 MMOL/L (24-32); TOTAL PROTEIN 6.8 G/DL (6.4-8.2); VANCOMYCIN,RANDOM 23.1 UG/ML; eGFR 6 ML/MIN
[2020-11-14 08:29] LABS: BLOOD UREA NITROGEN 44 MG/DL (7-18); BUN/CREATININE RATIO 4.7 (5.4-32.0)
[2020-11-14 08:30] LABS: CALCIUM 12.3 MG/DL (8.5-10.1)
[2020-11-14 09:04] LABS: ANISOCYTOSIS 3+; PLATELET ESTIMATE DECREASED
[2020-11-14 09:10] LABS: TOTAL CELLS COUNTED 100
[2020-11-14] MEDS ORDERED: pamidronate disodium inj 60 MG in normal saline 500ml IV soln 500 ML IV ONE (09:10)
[2020-11-14] MEDS: pantoprazole 40mg Tablet.DR PO SCH ×2 (09:11→19:25)
[2020-11-14] MEDS: acyclovir 200 MG capsule PO SCH ×2 (09:12→19:25)
[2020-11-14] MEDS: aspirin 81mg tablet.DR PO SCH (09:12)
[2020-11-14] MEDS: cyanocobalamin 500mcg tablet PO SCH (09:13)
[2020-11-14] MEDS: docusate sod 100mg capsule PO SCH ×2 (09:13→19:25)
[2020-11-14] MEDS: VANCOMYCIN LEVEL IV SCH (09:14)
[2020-11-14] MEDS: K and/or MAG REPLACEMENT MC SCH ×2 (09:15→19:27)
[2020-11-14] MEDS: cefTAZidime inj. 1 GM in normal saline 100ml IV soln 100 ML IV SCH (09:15)
[2020-11-14] MEDS ORDERED: methylPREDNISolone sod succ 125mg/2ml vial IV ONE (09:15)
[2020-11-14] MEDS: POMALIDOMIDE 3 MG PO SCH (09:16)
[2020-11-14] MEDS: normal saline 1000ml 1,000 ML IV SCH ×2 (11:06→19:27)
[2020-11-14 11:11] VITALS: BP 185/83
[2020-11-14] MEDS ORDERED: cefTAZidime inj 2 GM in normal saline 100ml IV soln 100 ML IV ONE (12:00)
[2020-11-14 15:38] VITALS: BP 155/102
[2020-11-14 18:00] VITALS: BP 167/94
--- NOTE | 2020-11-14 18:27 | NUR ---
Patient in room MED 310. I have received report from Francisco Javier VIERA and had the opportunity to ask questions and assume patient care.
[2020-11-14 22:00] VITALS: BP 144/84
[2020-11-15] VITALS (8 sets, daily range): BP systolic 134–163; BP diastolic 70–104
[2020-11-15] MEDS: VANCOMYCIN LEVEL IV SCH (03:00)
[2020-11-15] MEDS: normal saline 1000ml 1,000 ML IV SCH (05:53)
[2020-11-15 06:41] LABS: ALANINE AMINOTRANSFERASE 15 U/L (12-78); ALBUMIN 2.2 G/DL (3.4-5.0); ALBUMIN/GLOBULIN RATIO 0.5 (1.1-1.5); ALKALINE PHOSPHATASE 62 IU/L (46-116); ANION GAP 12 (8-16); ASPARTATE AMINO TRANSFERASE 19 U/L (10-37); BILIRUBIN,TOTAL 0.4 MG/DL (0.1-1.0); BLOOD UREA NITROGEN 41 MG/DL (7-18); BUN/CREATININE RATIO 5.6 (5.4-32.0); CALCIUM 10.3 MG/DL (8.5-10.1); CHLORIDE 100 MMOL/L (99-107); CREATININE 7.33 MG/DL (0.60-1.10); GLUCOSE 108 MG/DL (70-104); MAGNESIUM 1.8 MG/DL (1.5-2.4); POTASSIUM 4.3 MMOL/L (3.5-5.1); SODIUM 138 MMOL/L (135-145); TOTAL CARBON DIOXIDE 25.6 MMOL/L (24-32); TOTAL PROTEIN 6.7 G/DL (6.4-8.2); VANCOMYCIN,RANDOM 15.2 UG/ML; eGFR 8 ML/MIN
[2020-11-15 07:06] LABS: HEMOGLOBIN 7.9 g/dl (14.0-17.9)
[2020-11-15 07:07] LABS: HEMATOCRIT 24.1 % (42.0-52.0); MEAN CORPUSCULAR HGB CONC 32.9 g/dL (33.0-36.5); MEAN CORPUSCULAR VOLUME 94.3 FL (78-98); MEAN PLATELET VOLUME 8.3 FL (7.4-10.4); RED BLOOD COUNT 2.55 X10'6 (4.70-6.10); RED CELL DISTRIBUTION WIDTH 24.3 % (11.5-14.5); WHITE BLOOD COUNT 2.2 X10'3 (4.5-11.0)
[2020-11-15 07:25] LABS: PLATELET COUNT 18 X10'3 (140-440)
--- NOTE | 2020-11-15 07:27 | NUR ---
Patient in room MED 310. I have received report from [facility] and had the opportunity to ask questions and assume patient care.
--- NOTE | 2020-11-15 07:29 | NUR ---
PAGER ID: [phone] MESSAGE: rm 310 mr Amaya , pt PlT COUNT DECREASED TO 18 . THANK YOU SHIRA EXT [phone]
[2020-11-15] MEDS: K and/or MAG REPLACEMENT MC SCH ×2 (07:30→20:00)
--- NOTE | 2020-11-15 07:31 | NUR ---
RETURNED PAGE ABOUT LOW PLT COUNT. NEW ORDERS TO D/C ASA AND WILL ORDER PLT TRANSFUSION .
[2020-11-15] MEDS: POMALIDOMIDE 3 MG PO SCH (08:00)
[2020-11-15] MEDS: aspirin 81mg tablet.DR PO SCH (08:00)
[2020-11-15] MEDS: acyclovir 200 MG capsule PO SCH ×2 (08:43→21:03)
[2020-11-15] MEDS: cefTAZidime inj. 1 GM in normal saline 100ml IV soln 100 ML IV SCH (08:44)
[2020-11-15] MEDS: cyanocobalamin 500mcg tablet PO SCH (08:44)
[2020-11-15] MEDS: pantoprazole 40mg Tablet.DR PO SCH ×2 (08:44→21:03)
[2020-11-15] MEDS: docusate sod 100mg capsule PO SCH ×2 (08:44→22:01)
--- NOTE | 2020-11-15 09:19 | NUR ---
PAGER ID: [phone] MESSAGE: room 310 mr Amaya, has an order for ns @100ml/hr and he is a dialysis patient ,do you want us to continue or d/c order? pt also c/o constipation can you place an order for a laxative thank you Melissa ext [phone]
[2020-11-15] MEDS ORDERED: bisacodyl 10mg suppository rectal RC STA (09:26)
[2020-11-15 10:22] LABS: NUCLEATED RED BLOOD CELLS 1 /100WBC (0-0); TOTAL CELLS COUNTED 100
[2020-11-15 10:26] LABS: ANISOCYTOSIS 3+; ELLIPTOCYTES FEW; PLATELET ESTIMATE DECREASED; SCHISTOCYTES FEW
[2020-11-15 10:27] LABS: STOMATOCYTES FEW
--- NOTE | 2020-11-15 12:47 | NUR ---
PAGER ID: [phone] MESSAGE: room 310 (Jose Luis) Dr Masterson in on rounds and stated he recommend pt be discharged. he stated to please read his notes as pt don't need platelets due to his multiple myeloma and d/c ivf . pls call ext [phone] Melissa thanks
--- NOTE | 2020-11-15 14:33 | NUR ---
Dietary t/c: Pt requesting renal diet guidelines on renal diet this admit. Pt seen by RD for written/verbal renal diet ed w/ RD contact information provided. Pt provided w/ phos and potassium content of foods as well. Pt reports follows HD RD at [facility] and mainly wanted list of Na/K/Phos content of foods. RD encouraged pt to f/u w/ HD RD and contact dietitian's office if further questions/concerns. Addendum: 11/15/20 at 14[address] Amended: Links added. Addendum: 11/15/20 at 14[address] *pt goes to [facility] dialysis [place]
--- NOTE | 2020-11-15 15:05 | NUR ---
promotional table spacer PAGER ID: [phone] MESSAGE: Jose Luis Laguna. Can I cancel the discharge order for today? Thank you , Valeria [phone]
--- NOTE | 2020-11-15 17:24 | NUR ---
End of shift rounds completed. pt receiving plts at this time no adverse reaction. vs stable. pt discharge was held and per Dr Villarreal will have ID see him and then possible d/c tomorrow. pt denies pain no distress. no adverse reaction from abx therapy . call butcher in reach will monitor
[2020-11-15] MEDS: HYDROcodone/acetaminophen 5mg/325mg tablet PO PRN (21:09)
[2020-11-15] MEDS ORDERED: calcium carbonate 500mg chew tablet PO PRN (21:45)
[2020-11-16] MEDS: VANCOMYCIN LEVEL IV SCH (03:53)
[2020-11-16] MEDS: HYDROcodone/acetaminophen 5mg/325mg tablet PO PRN ×2 (04:53→15:49)
[2020-11-16 06:11] LABS: HEMATOCRIT 23.3 % (42.0-52.0); HEMOGLOBIN 7.8 g/dl (14.0-17.9); MEAN CORPUSCULAR HGB CONC 33.4 g/dL (33.0-36.5)
[2020-11-16 06:13] LABS: CHLORIDE 99 MMOL/L (99-107); GLUCOSE 91 MG/DL (70-104); MEAN CORPUSCULAR HEMOGLOBIN 31.5 PG (27.0-31.0); MEAN CORPUSCULAR VOLUME 94.4 FL (78-98); MEAN PLATELET VOLUME 8.8 FL (7.4-10.4); POTASSIUM 4.2 MMOL/L (3.5-5.1); RED BLOOD COUNT 2.47 X10'6 (4.70-6.10); RED CELL DISTRIBUTION WIDTH 24.5 % (11.5-14.5); SODIUM 135 MMOL/L (135-145); TOTAL CARBON DIOXIDE 25.8 MMOL/L (24-32); WHITE BLOOD COUNT 1.3 X10'3 (4.5-11.0)
[2020-11-16 06:14] LABS: ALANINE AMINOTRANSFERASE 16 U/L (12-78); ALBUMIN 2.1 G/DL (3.4-5.0); ALBUMIN/GLOBULIN RATIO 0.5 (1.1-1.5); ALKALINE PHOSPHATASE 58 IU/L (46-116); ANION GAP 10 (8-16); ASPARTATE AMINO TRANSFERASE 19 U/L (10-37); BILIRUBIN,TOTAL 0.4 MG/DL (0.1-1.0); BLOOD UREA NITROGEN 61 MG/DL (7-18); BUN/CREATININE RATIO 6.7 (5.4-32.0); CALCIUM 9.6 MG/DL (8.5-10.1); MAGNESIUM 1.8 MG/DL (1.5-2.4); TOTAL PROTEIN 6.2 G/DL (6.4-8.2); VANCOMYCIN,RANDOM 13.4 UG/ML; eGFR 6 ML/MIN
--- NOTE | 2020-11-16 06:23 | NUR ---
Patient in room MED 310. I have received report from Janneth and had the opportunity to ask questions and assume patient care.
[2020-11-16 06:36] LABS: PLATELET COUNT 29 X10'3 (140-440)
[2020-11-16 07:24] VITALS: BP 156/97
[2020-11-16 07:50] LABS: TOTAL CELLS COUNTED 100
[2020-11-16 07:51] LABS: PLATELET ESTIMATE DECREASED
[2020-11-16] MEDS: POMALIDOMIDE 3 MG PO SCH (08:00)
[2020-11-16] MEDS: K and/or MAG REPLACEMENT MC SCH (08:00)
[2020-11-16] MEDS: pantoprazole 40mg Tablet.DR PO SCH (08:05)
[2020-11-16] MEDS: acyclovir 200 MG capsule PO SCH (08:05)
[2020-11-16] MEDS: cyanocobalamin 500mcg tablet PO SCH (08:05)
[2020-11-16] MEDS: docusate sod 100mg capsule PO SCH (08:06)
[2020-11-16] MEDS: cefTAZidime inj. 1 GM in normal saline 100ml IV soln 100 ML IV SCH (08:06)
[2020-11-16 08:13] LABS: ANISOCYTOSIS 2+
[2020-11-16 08:19] LABS: SPHEROCYTES 1+
[2020-11-16 08:20] LABS: HYPOCHROMASIA 1+; SCHISTOCYTES FEW
[2020-11-16] MEDS ORDERED: vancomycin/NS 1 GM ADD-VANTAGE 250 ML IV ONE (10:00)
[2020-11-16 11:27] VITALS: BP 152/83
--- NOTE | 2020-11-16 15:04 | NUR ---
PAGER ID: [phone] MESSAGE: rm 310 , ID came recommend ceftaz after dialysis until 11/22. then fuel retrofitting technician DR. Rodriguez stated to have you discharge patient and he will take care antibiotics at dialysis . he wants you to call with questions ext [phone]
[2020-11-16 15:43] VITALS: BP 138/88
--- NOTE | 2020-11-16 16:23 | NUR ---
PT BEING DISCHARGED TO HOME . INT REMOVED WITHOUT [id number] . DISCHARGE INSTRUCTIONS REVIEWED WITH PATIENT AND HE VOICED UNDERSTANDING . PT WILL HAVE HIS REGULAR SCHEDULED DIALYSIS TOMORROW AND HAVE ABX THERAPY. ALL VALUABLES ACCOUNTED FOR AND PT WAITING FOR HIS BROTHER WIL TO TRANSPORT HOME
[2020-11-17 09:45] LABS: HBSAG SCREEN Negative (Negative)
== END 2020-11-16 16:36 | disposition home or self-care (01) | DRG 871 ==
LOC: ER 14:38 → ED HOLD 15:48 → MED 3N 17:35
PROVIDERS: ADMIT Internal Medicine; ATTEND Internal Medicine
PROC: 0JPT3XZ Removal of Tunneled Vascular Access Device from Trunk Subcutaneous Tissue and Fascia, Percutaneous Approach (ICD-10-PCS; principal; 2020-11-13)
PROC: 30233N1 Transfusion of Nonautologous Red Blood Cells into Peripheral Vein, Percutaneous Approach (ICD-10-PCS; 2020-11-13)
PROC: 5A1D70Z Performance of Urinary Filtration, Intermittent, Less than 6 Hours Per Day (ICD-10-PCS; 2020-11-14)
PROC: 30233R1 Transfusion of Nonautologous Platelets into Peripheral Vein, Percutaneous Approach (ICD-10-PCS; 2020-11-15)
DX: A41.9 Sepsis, unspecified organism (principal); I21.A1 Myocardial infarction type 2; N18.6 End stage renal disease; C90.00 Multiple myeloma not having achieved remission; I13.2 Hypertensive heart and chronic kidney disease with heart failure and with stage 5 chronic kidney disease, or end stage renal disease; I50.32 Chronic diastolic (congestive) heart failure; D61.818 Other pancytopenia; D63.8 Anemia in other chronic diseases classified elsewhere; E83.52 Hypercalcemia; Z60.2 Problems related to living alone; K21.9 Gastro-esophageal reflux disease without esophagitis; Z86.19 Personal history of other infectious and parasitic diseases; Z87.440 Personal history of urinary (tract) infections; Z87.891 Personal history of nicotine dependence; Z91.19 Patient's noncompliance with other medical treatment and regimen; Z99.2 Dependence on renal dialysis; Z79.899 Other long term (current) drug therapy; Z79.82 Long term (current) use of aspirin
CPT/HCPCS: 36415; 36430; 80053; 80202; 82272; 82330; 83605; 83735; 84145; 84484; 85007; 85025; 86644; 86870; 86885; 86900; 86901; 86902; 86905; 86922; 86945; 87040; 87070; 87077; 87081; 87186; 87340; 93005; 93306; 93308; 96365; 97530; 99285; G0378; J0713; J1940; J2001; J2430; J2930; J3370; J7030; J7040; P9016; P9035; Q4081